=== PATIENT | female | born 2000 | race African-American/Black ===

== ENCOUNTER 2021-11-28 20:14 | Emergency (ER) | payer OTHER ==
--- OUTSIDE RECORDS SUMMARY | 2021-11-28 20:18 | XMS REPORT | Continuity of Care Document ---
:2000 Author Organization [facility] t Address [address] [place] [place] [address] Care Team Providers Name Role Phone Pcp, Patient Does Not Have A Primary Care Physician [phone] Jaida Castañeda Attending Clinician Unavailable VIV WOODRUFF Attending Clinician Unavailable RUIZ HARRIS Attending Clinician Unavailable Roxane Fall Attending Clinician 2, [facility] Us Room Attending Clinician Unavailable Russell Vázquez MD Attending Clinician RUSSELL VÁZQUEZ Attending Clinician Unavailable Doctor Unassigned, [place] Attending Clinician Unavailable VIVIEN GRIMALDO Attending Clinician Unavailable Marcello Babb Attending Clinician Vivien Grimaldo MD Attending Clinician Ruiz Bergman Attending Clinician [phone] ROXANE DAO Attending Clinician Unavailable 1, [facility] Us Room Attending Clinician Unavailable Eliana Rangel MD Attending Clinician ELIANA RANGEL Attending Clinician Unavailable NAHUM ESCOTO Attending Clinician Unavailable VIVIEN GRIMALDO Admitting Clinician Unavailable Jaida Castañeda Admitting Clinician Unavailable KNOW, DOES_NOT Admitting Clinician Unavailable Vivien Grimaldo MD Admitting Clinician Payers Payer Name Policy Type Policy Number Effective Date Expiration Date Zia santoyo FORMERLY [facility] [id number] 2021 [facility] MEDICAID 00:00:00 Problems Condition Condition Condition Status Onset Resolution Last Treating Co mments Source Name Details Category Date Date Treatment Clinician Date Supervisio Supervisio Disease Active U nivers n of high n of high 1-19 ity of risk risk 00:00: [place] 00 Medi queta in first in first Branch trimester trimester Overweight Overweight Disease Active U nivers (BMI (BMI 1-19 ity of 25.0-29.9) 25.0-29.9[place] Leg pain, Leg pain, Disease Active Uni vers right right 3-14 ity of 00:00: [place] 00 Medical Branch Allergies, Adverse Reactions, Alerts Allergy Allergy Status Severity Reaction(s) Onset Inactive Treating Comm ents Source Name Type Date Date Clinician shelldannie FA Active SV THROAT [facility] h SWELLING 8-27 [facility] derived [facility] [place] No Known DA Active U [facility] Allergie 8-26 [facility] s 00:[facility] [place] SEAFOOD/ Food Active Hives Univers FISH 9-10 ity of 00:00: [place] 00 Medical Branch Seafood/ Propensi Active Hives Univer s Fish ty to 9-10 ity of adverse 00:00: [place] reaction 00 Medical s Branch Social History Social Habit Start Date Stop Date Quantity Comments Source ASSERTION 2021-02-23 [facility] 00:00:00 Medical Branch Exposure to 2021-07-08 2021-07-18 Not sure [facility] SARS-CoV-2 (event) 00:00:00 09:18:00 Medica l Branch Alcohol intake 2021-06-25 2021-06-25 0 /d [facility] 00:00:00 00:00:00 Medical Branch Tobacco use and 2015-05-04 2015-05-04 Never used [facility] exposure 00:00:00 00:00:00 Medical Branch Sex Assigned At 2000 2000 [facility] 00:00:00 00:00:00 Medical Branch Smoking Status Start Date Stop Date Source Never smoker [facility] Medical Branch Medications Ordered Filled Start Stop Current Ordering Indication Dosage Frequency Signature Comments Components Source Medication Medication Date Date Medication? Clinician (SIG) Name Name Yes Take by Univer s vit/iron 4-23 mouth ity of fum/folic 13:22: daily. [place] [address] Medical ( 1 Branch + 1 ORAL) Yes Take by Univer s vit/iron 4-23 mouth ity of fum/folic 13:22: daily. [place] [address] Medical ( 1 Branch + 1 ORAL) Yes Take by Univer s vit/iron 4-23 mouth ity of fum/folic 13:22: daily. [place] [address] Medical ( 1 Branch + 1 ORAL) Yes Take by Univer s vit/iron 4-23 mouth ity of fum/folic 13:22: daily. [place] [address] Medical ( 1 Branch + 1 ORAL) Yes Take by Univer s vit/iron 4-23 mouth ity of fum/folic 13:22: daily. [place] [address] Medical ( 1 Branch + 1 ORAL) Yes Take by Univer s vit/iron 4-23 mouth ity of fum/folic 13:22: daily. [facility] 58 Medical ( 1 Branch + 1 ORAL) Yes Take by Univer s vit/iron 4-23 mouth ity of fum/folic 13:22: daily. [facility] 58 Medical ( 1 Branch + 1 ORAL) Yes Take by Univer s vit/iron 4-04 mouth ity of fum/folic 11:42: daily. [facility] 00 Medical ( 1 Branch + 1 ORAL) proMETHazin Yes [id number] 12.5mg Take 1 Univers e 12.5 mg 2-16 tablet by ity o f tablet 00:00: mouth [place] [address] every 6 Medical (six) Branch hours as needed for Nausea and Vomiting (N/V) () for up to 60 doses. proMETHazin 2021-0 Yes [id number] 12.5mg Take 1 Univers e 12.5 mg 2-16 tablet by ity o f tablet 00:00: mouth [place] 00 every 6 Medical (six) Branch hours as needed for Nausea and Vomiting (N/V) () for up to 60 doses. proMETHazin 0 Yes [id number] 12.5mg Take 1 Univers e 12.5 mg 2-16 tablet by ity o f tablet 00:00: mouth [place] 00 every 6 Medical (six) Branch hours as needed for Nausea and Vomiting (N/V) () for up to 60 doses. proMETHazin 2021-0 Yes [id number] 12.5mg Take 1 Univers e 12.5 mg 2-16 tablet by ity o f tablet 00:00: mouth [place] 00 every 6 Medical (six) Branch hours as needed for Nausea and Vomiting (N/V) () for up to 60 doses. proMETHazin 2021- No [id number] 12.5mg Take 1 Univers e 12.5 mg 2-16 04-04 tablet by ity of tablet 00:00: 00:00 mouth [place] 00 :00 every 6 Medical (six) Branch hours as needed for Nausea and Vomiting (N/V) () for up to 60 doses. PNV 67-iron 2021- No [id number] 1{tbl} Take 1 Univers ps-folate 2-16 -19 tablet by ity of no.1-dha 00:00: 04:59 mouth [place] (VITAFOL 00 :00 daily for Medica l ULTRA) 29 30 days. Branch mg iron- 1 mg-200 mg Cap PNV 67-iron 2021- No [id number] 1{tbl} Take 1 Univers ps-folate 2-16 03-19 tablet by ity of no.1-dha 00:00: 04:59 mouth [place] (VITAFOL 00 :00 daily for Medica l ULTRA) 29 30 days. Branch mg iron- 1 mg-200 mg Cap PNV 67-iron 2021- No [id number] 1{tbl} Take 1 Univers ps-folate 2-16 03-19 tablet by ity of no.1-dha 00:00: 04:59 mouth [place] (VITAFOL 00 :00 daily for Medica l ULTRA) 29 30 days. Branch mg iron- 1 mg-200 mg Cap PNV 67-iron 2021- No [id number] 1{tbl} Take 1 Univers ps-folate 05-09 tablet by ity of no.1-dha 00:00: 04:59 mouth [place] (VITAFOL 00 :00 daily for Medica l ULTRA) 29 30 days. Branch mg iron- 1 mg-200 mg Cap cephALEXin 2021- No TAKE 1 Univ ers 500 mg 04-05 CAPSULE BY ity of capsule 00:00: 00:00 MOUTH [place] 00 :00 TWICE Medical DAILY FOR Branch 3 DAYS ibuprofen 2014-03 No 600mg Take 1 Tab Univers (MOTRIN) 05-09 by mouth ity of 600 mg 00:00: 00:00 every 6 [place] tablet 00 :00 (six) Medical hours as Branch needed for Pain (scale 4-6) with oral narcotics. Immunizations Ordered Filled Immunization Date Status Comments [facility] e Immunization Name Name SARS-COV-2 COVID-19 2020-12-06 Completed Unive rsity of PFIZER VACCINE 00:00:00 [facility] SARS-COV-2 COVID-19 2020-12-06 Completed Unive rsity of PFIZER VACCINE 00:00:00 [facility] SARS-COV-2 COVID-19 2020-12-06 Completed Unive rsity of PFIZER VACCINE 00:00:00 [facility] SARS-COV-2 COVID-19 2020-12-06 Completed Unive rsity of PFIZER VACCINE 00:00:00 [facility] SARS-COV-2 COVID-19 2020-12-06 Completed Unive rsity of PFIZER VACCINE 00:00:00 [facility] SARS-COV-2 COVID-19 2020-12-06 Completed Unive rsity of PFIZER VACCINE 00:00:00 [facility] SARS-COV-2 COVID-19 2020-12-06 Completed Unive rsity of PFIZER VACCINE 00:00:00 [facility] SARS-COV-2 COVID-19 2020-12-06 Completed Unive rsity of PFIZER VACCINE 00:00:00 [place] Medi queta Branch SARS-COV-2 COVID-19 2020-12-06 Completed Unive rsity of PFIZER VACCINE 00:00:00 [facility] [place] [facility] Branch SARS-COV-2 COVID-19 2020-12-06 Completed Unive rsity of PFIZER VACCINE 00:00:00 [facility] [place] [facility] Branch SARS-COV-2 COVID-19 2020-12-06 Completed Unive rsity of PFIZER VACCINE 00:00:00 [facility] [place] [facility] Branch SARS-COV-2 COVID-19 2020-12-06 Completed Unive rsity of PFIZER VACCINE 00:00:00 [facility] [place] [facility] Branch SARS-COV-2 COVID-19 2020-11-15 Completed Unive rsity of PFIZER VACCINE 00:00:00 [facility] [place] [facility] Branch SARS-COV-2 COVID-19 2020-11-15 Completed Unive rsity of PFIZER VACCINE 00:00:00 [facility] [place] [facility] Branch SARS-COV-2 COVID-19 2020-11-15 Completed Unive rsity of PFIZER VACCINE 00:00:00 [facility] [place] [facility] Branch SARS-COV-2 COVID-19 2020-11-15 Completed Unive rsity of PFIZER VACCINE 00:00:00 [facility] [place] [facility] Branch SARS-COV-2 COVID-19 2020-11-15 Completed Unive rsity of PFIZER VACCINE 00:00:00 [facility] [place] [facility] Branch SARS-COV-2 COVID-19 2020-11-15 Completed Unive rsity of PFIZER VACCINE 00:00:00 [facility] [place] [facility] Branch SARS-COV-2 COVID-19 2020-11-15 Completed Unive rsity of PFIZER VACCINE 00:00:00 [facility] [place] [facility] Branch SARS-COV-2 COVID-19 2020-11-15 Completed Unive rsity of PFIZER VACCINE 00:00:00 [facility] [place] [facility] Branch SARS-COV-2 COVID-19 2020-11-15 Completed Unive rsity of PFIZER VACCINE 00:00:00 [facility] [place] [facility] Branch SARS-COV-2 COVID-19 2020-11-15 Completed Unive rsity of PFIZER VACCINE 00:00:00 [facility] SARS-COV-2 COVID-19 2020-11-15 Completed Unive rsity of PFIZER VACCINE 00:00:00 [facility] SARS-COV-2 COVID-19 2020-11-15 Completed Unive rsity of PFIZER VACCINE 00:00:00 [facility] [place] [facility] Branch HPV 2012-02-11 Completed University of 00:00:00 [facility] HPV 2012-02-11 Completed University of 00:00:00 [facility] Branch HPV 2012-02-11 Completed University of 00:00:00 [facility] HPV 2012-02-11 Completed University of 00:00:00 [facility] Branch HPV 2012-02-11 Completed University of 00:00:00 [facility] Branch HPV 2012-02-11 Completed University of 00:00:00 [facility] Branch HPV 2012-02-11 Completed University of 00:00:00 [facility] Branch HPV 2012-02-11 Completed University of 00:00:00 [facility] Branch HPV 2012-02-11 Completed University of 00:00:00 [facility] Branch HPV 2012-02-11 Completed University of 00:00:00 [facility] HPV 2012-02-11 Completed University of 00:00:00 [facility] HPV 2012-02-11 Completed University of 00:00:00 [facility] Vital Signs Vital Name Observation Time Observation Value Comments Source Systolic blood 2021-07-14 15:05:00 100 mm[Hg] Univer sity of pressure [facility] Diastolic blood 2021-07-14 15:05:00 70 mm[Hg] Unive rsity of pressure [facility] Heart rate 2021-07-14 15:05:00 113 /min [facility] Body temperature 2021-07-14 15:05:00 36.44 Afsaneh [facility] 2021-07-14 15:05:00 19 /min [facility] Body height 2021-07-14 15:05:00 160 cm [facility] Body weight 2021-07-14 15:05:00 71.124 kg [facility] BMI 2021-07-14 15:05:00 27.78 kg/m2 [facility] Oxygen saturation in 2021-07-14 15:05:00 100 /min [facility] Arterial blood by [facility] [place] [facility] Pulse oximetry Branch Systolic blood 2021-06-25 15:26:00 102 mm[Hg] Univer sity of pressure [facility] Diastolic blood 2021-06-25 15:26:00 67 mm[Hg] Unive rsity of pressure [place] [facility] Heart rate 2021-06-25 15:26:00 102 /min [facility] [place] [facility] Body temperature 2021-06-25 15:26:00 36.06 Afsaneh Univ ers[facility] [place] [facility] Respiratory rate 2021-06-25 15:26:00 20 /min [facility] [place] [facility] Body height 2021-06-25 15:26:00 160 cm [facility] [place] [facility] Body weight 2021-06-25 15:26:00 72.213 kg [facility] [place] [facility] BMI 2021-06-25 15:26:00 28.20 kg/m2 [facility] [place] [facility] Systolic blood 2021-05-30 16:52:00 98 mm[Hg] Univer sity of pressure [place] [facility] Diastolic blood 2021-05-30 16:52:00 71 mm[Hg] Unive rsity of pressure [place] [facility] Heart rate 2021-05-30 16:52:00 105 /min [facility] [place] [facility] Body temperature 2021-05-30 16:52:00 36.39 Afsaneh Univ ers[facility] [place] [facility] Respiratory rate 2021-05-30 16:52:00 18 /min Univ [facility] [place] [facility] Body height 2021-05-30 16:52:00 160 cm [facility] [place] [facility] Body weight 2021-05-30 16:52:00 71.532 kg [facility] [place] [facility] BMI 2021-05-30 16:52:00 27.94 kg/m2 [facility] [place] [facility] Systolic blood 2021-05-09 16:50:00 114 mm[Hg] Univer sity of pressure [place] [facility] Diastolic blood 2021-05-09 16:50:00 75 mm[Hg] Unive rsity of pressure [place] [facility] Heart rate 2021-05-09 16:50:00 103 /min [facility] [place] [facility] Body temperature 2021-05-09 16:50:00 36.28 Afsaneh Univ ers[facility] [place] [facility] Respiratory rate 2021-05-09 16:50:00 20 /min [facility] [place] [facility] Body height 2021-05-09 16:50:00 160 cm [facility] [place] [facility] Body weight 2021-05-09 16:50:00 71.215 kg [facility] BMI 2021-05-09 16:50:00 27.81 kg/m2 [facility] Procedures Procedure Date / Time Performing Clinician Source Performed [id number] 2021-11-17 00:00:00 [facility] [id number] 2021-11-17 00:00:00 [facility] [id number] 2021-11-17 00:00:00 [facility] [id number] 2021-11-16 00:00:00 [facility] AUTHORIZATION FOR 2021-07-18 05:01:00 Doctor Unassigned, No Univ [facility] RELEASE OF [facility] CONSENT/REFUSAL FOR 2021-07-14 14:54:20 Doctor Unassigned, No [facility] AUTHORIZATION FOR 2021-07-13 05:01:00 Doctor Unassigned, No [facility] POCT URINALYSIS 2021-06-25 15:29:00 Lion Ackerman [facility] POCT URINALYSIS 2021-05-30 16:56:00 Lion Ackerman [facility] POCT URINALYSIS 2021-05-09 16:51:00 Lion Ackerman [facility] Encounters Start End Encounter Admission Attending Care Care Encounter Source Date/Time Date/Time Type Type Clinicians Facility Department ID 2021-07-14 Outpatient X [facility] JASMEET [id number] [facility] 2021-11-16 2021-11-19 Inpatient DANE Shultz OBPP [id number] [facility] 07:01:00 15:01:00 Jaida 31 [facility] [place] 2021-11-01 2021-11-01 Outpatient DANE Peters [facility] [id number] [facility] 10:11:00 10:11:00 Jaida [facility] 2021-08-08 2021-08-09 Emergency E IHEME, VIV BL BL [id number] [facility] 22:11:00 04:46:00 2021-07-24 2021-07-24 Outpatient R IAN-GATO [facility] [id number] Univers 09:15:00 09:15:00 RUIZ PACK [id number] it y [facility] 2021-07-19 2021-07-19 Telephone ADRIANA Dao [id number] Univers 00:00:00 00:00:00 Roxane Valladares NURSING TECH [id number] i ty of REGIONAL 4.2.7.2.686 Slim as MATERNAL [id number] Med ical & CHILD [address] [place] [address] 2021-07-18 2021-07-18 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 840.114 [id number] Univers 10:00:00 11:00:00 Visit Russell Vázquez NURSING TECH 350.1.13.1 0 ity of [facility] 4.2.7.2.686 Slim as MATERNAL [id number] Med ical & CHILD [address] [place] [address] 2021-07-18 2021-07-18 Outpatient P [facility] [id number] Univers 10:00:00 10:00:00 [id number] [facility] 2021-07-18 2021-07-18 [facility] [id number] Univers 10:00:00 10:00:00 [facility] 2021-07-18 2021-07-18 Outpatient P [facility] [id number] Univers 09:00:00 09:00[facility] 2021-07-18 2021-07-18 Letter Arnold [facility] [id number] Univers 00:00:00 00:00:00 (Out) Russell Latham NURSING TECH 350.1.13.10 ity of [facility] 4.2.7.2.686 Slim as MATERNAL [id number] [facility] ical & CHILD [address] [place] [address] 2021-07-18 2021-07-18 Abstract Feliberto [facility] 1.2.840.114 [id number] Univers 00:00:00 00:00:00 Roxane Valladares NURSING TECH 350.1.13.10 i ty of [facility] 4.2.7.2.686 Slim as MATERNAL [id number] Med ical & CHILD [address] [place] [address] 2021-07-18 2021-07-18 Orders Doctor MANUEL 1.2.840.114 [id number] Univers 00:00:00 00:00:00 Only Unassigned, GENNY 350.1.13.10 ity of [place] [facility] 4.2.7.2.686 Slim as [id number] [address] 2021-07-14 2021-07-14 Outpatient X ADUM, [facility] JASMEET [id number] Univers 10:07:00 11:45:00 VIVIEN guidry [facility] 2021-07-14 2021-07-14 Emergency Lewis, Marcello [facility] 1.2. 840.114 [id number] Univers 10:07:00 11:45:00 AdVivien lazo 350.1.13.10 ity [facility] 4.2.7.2.686 [place] [facility] [id number] [facility] 083 [place] 2021-07-13 2021-07-13 Orders Doctor MANUEL 1.2.840.114 [id number] Univers 00:00:00 00:00:00 Only Unassigned, GENNY 350.1.13.10 ity of [place] [facility] 4.2.7.2.686 Slim as [id number] [address] 2021-06-28 2021-06-28 Outpatient R [facility] [id number] Univers 10:45:00 10:45:00 [id number] ity [facility] 2021-06-28 2021-06-28 Outpatient P [facility] [id number] Univers 10:45:00 10:45:00 ity [facility] 2021-06-25 2021-06-25 Outpatient R IAN-GATO [facility] [id number] Univers 10:30:00 10:45:59 RUIZ PACK y [facility] 2021-06-25 2021-06-25 Routine [facility] 1.2.840.114 [id number] Univers 10:30:00 10:45:59 Ruiz pack NURSING TECH 350.1.13.10 ity of Visit REGIONAL 4.2.7.2.686 Slim as MATERNAL [id number] [facility] & CHILD [address] [place] [address] 2021-06-25 2021-06-25 Outpatient R MARISSAR [facility] [id number] Univers 10:30:00 10:30:00 RUIZ PACK [id number] it y [facility] 2021-05-30 2021-05-30 [facility] [id number] Univers 10:45:00 11:27:39 ROXANE [facility] 2021-05-30 2021-05-30 [facility] 1.2.840.114 [id number] Univers 10:45:00 11:27:39 Roxane Valladares NURSING TECH 350.1.13.10 ity of Visit REGIONAL 4.2.7.2.686 Slim as MATERNAL [id number] [facility] & CHILD [address] [place] [address] 2021-05-28 2021-05-28 Abstract Feliberto [facility] 1.2.840.114 [id number] Univers 00:00:00 00:00:00 Roxane Valladares NURSING TECH 350.1.13.10 i ty of REGIONAL 4.2.7.2.686 Slim as MATERNAL [id number] [facility] & CHILD [address] [place] [address] 2021-05-24 2021-05-24 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 840.114 [id number] Univers 10:30:00 11:00:00 Visit Eliana Rangel NURSING TECH 350.1.13.10 ity of REGIONAL 4.2.7.2.686 Slim as MATERNAL [id number] [facility] & CHILD [address] [place] [address] 2021-05-24 2021-05-24 Outpatient R [facility] [id number] Univers 10:30:00 10:30:00 [id number] [facility] 2021-05-24 2021-05-24 Outpatient P GIA [facility] [id number] Univers 10:30:00 10:30:00 ELIANA [facility] 2021-05-09 2021-05-09 [facility] 1.2.840.114 [id number] Univers 11:00:00 11:25:13 Roxane K NURSING TECH 350.1.13.10 ity of Visit REGIONAL 4.2.7.2.686 Slim as MATERNAL [id number] Med ical & CHILD [address] [place] [address] 2021-04-05 2021-04-05 Emergency [id number] 16:26:00 18:32:00 NAHUM Results Test Description Test Time Test Comments Results Result Comments Source HGB HCT 2021-11-18 06:54:00 Test Item Value Reference Range Interpretation Comme nts HEMOGLOBIN (test code = HGB) 9.7 g/dL 10.1-13.8 L HEMATOCRIT (test code = HCT) 29.3 % 32.5-41.8 L COMPREHENSIVE METABOLIC [id number] 07:25:00 Test Item Value Reference Range Interpretation Comments SODIUM (test code = NA) 138 mEq/L 135-145 N POTASSIUM (test code = K) 3.6 mEq/L 3.5-5.0 N CHLORIDE (test code = CL) 105 mEq/L 100-115 N CARBON DIOXIDE (test code = CO2) 23 mEq/L 22-31 N ANION GAP (test code = GAP) 13.40 10-20 N GLUCOSE (test code = GLU) 103 mg/dL 65-110 N BLOOD UREA NITROGEN (test code = 4 mg/dL 7-18 L BUN) GLOMERULAR FILTRATION RATE (test 176 ml/min >60 N code = GFR) CREATININE (test code = CREAT) 0.5 mg/dL 0.5-1.0 N TOTAL PROTEIN (test code = PROT) 5.9 gm/dL 6.3-8.2 L ALBUMIN (test code = ALB) 2.4 gm/dL 3.4-4.8 L CALCIUM (test code = CA) 8.0 mg/dL 8.4-10.2 L BILIRUBIN TOTAL (test code = 1.0 mg/dL 0.2-1.0 N BILT) SGOT/AST (test code = AST) 24 units/L 15-37 N SGPT/ALT (test code = ALT) 17 units/L 12-78 N ALKALINE PHOSPHATASE TOTAL (test 178 units/L 46-116 H code = ALKP) LACTIC [id number] 07:14:00 Test Item Value Reference Range Interpretation Comments LACTIC ACID (test code = LACT) 1.4 MMOL/L 0.5-2.2 N PROTHROMBIN [id number] 06:55:00 Test Item Value Reference Range Interpretation Comments PROTHROMBIN TIME PATIENT (test code 11.2 secs 10.1-12.3 N = PTP) IS PATIENT ON ANTICOAGULANTS ? NINTERNATIONAL NORMAL [id number] 06:55:00 Test Item Value Reference Range Interpretation Comments INTERNATIONAL NORMAL 0.98 The INR is to be used RATIO (test code = INR) only for monitoring oral anticoagulantth erapy. INDICATION INR VALUE 1. Prophylaxis inc luding high risk surge ry 2.0 - 2.52. Deep veno us thrombosis. Pul monary embolism. Atria l fibrillation or bioprosthetic h eart valves 2.0 - 3. 03. Mechanical hear t valves or recurrent sy stemic embolism. 3.0 - 3.5 IS PATIENT ON ANTICOAGULANTS ? NTHROMBOPLASTIN TIME [id number] 06:55:00 Test Item Value Reference Range Interpretation Comments THROMBOPLASTIN TIME PARTIAL (test 26.8 secs 22-38 N code = PTT) IS PATIENT ON ANTICOAGULANTS ? NCBC W/AUTO [id number] 06:43:00 Test Item Value Reference Range Interpretation Comments WHITE BLOOD CELL (test code = WBC) 10.1 K/mm3 6.5-12.3 N RED BLOOD CELL (test code = RBC) 4.19 M/mm3 3.51-4.69 N HEMOGLOBIN (test code = HGB) 12.3 g/dL 10.1-13.8 N HEMATOCRIT (test code = HCT) 36.9 % 32.5-41.8 N MEAN CELL VOLUME (test code = MCV) 88.1 fL 84.6-96.6 N MEAN CELL HGB (test code = MCH) 29.4 pg 27.3-33.9 N MEAN CELL HGB CONCETRATION (test 33.3 gm/dL 32.0-34.2 N code = MCHC) RED CELL DISTRIBUTION WIDTH (test 14.9 % 12.2-16.3 N code = RDW) PLATELET COUNT (test code = PLT) 232 K/mm3 134-363 N MEAN PLATELET VOLUME (test code = 10.0 fL 9.2-12.7 N MPV) NEUTROPHIL % (test code = NT%) 81.9 % 57.9-77.3 H LYMPHOCYTE % (test code = LY%) 9.1 % 14.5-29.7 L MONOCYTE % (test code = MO%) 7.4 % 3.6-10.2 N EOSINOPHIL % (test code = EO%) 1.0 % 0.0-3.0 N BASOPHIL % (test code = BA%) 0.2 % 0.1-0.9 N NEUTROPHIL # (test code = NT#) 8.3 K/mm3 LYMPHOCYTE # (test code = LY#) 0.9 K/mm3 MONOCYTE # (test code = MO#) 0.8 K/mm3 EOSINOPHIL # (test code = EO#) 0.10 K/mm3 BASOPHIL # (test code = BA#) 0.0 K/mm3 RBC MORPHOLOGY REQUIRED (test code NORMAL NORMAL = RBCM) PLATELET MORPHOLOGY REQUIRED (test NORMAL NORMAL code = PLTMR) AG HEPATITIS B [id number] 09:34:00 Test Item Value Reference Range Interpretation Comments AG HEPATITIS B SURFACE (test code NONREACTIVE NONREACTIVE = HBSAG) AB HEPATITIS C [id number] 09:34:00 Test Item Value Reference Range Interpretation Comments AB HEPATITIS C (test code = NONREACTIVE NONREACTIVE HCVAB) SIGNAL TO CUTOFF (test code = 0.19 <0.80 N CUTOFF) AB [id number] 09:34:00 Test Item Value Reference Range Interpretation Comments AB TREPONEMA (test code = TREPAB) NONREACTIVE NONREACTIVE AB HIV 1 09:34:00 Test Item Value Reference Range Interpretation Comments AB HIV 1 2 (test NONREACTIVE NONREACTIVE Done by [facility] code = [id number]) 4th Gen HIV Ag/Ab Combo Screen COVID 19 Asymptomatic IH [id number] 08:27:00 Test Item Value Reference Range Interpretation Comments COVID 19 NEGATIVE NEGATIVE This test has b een Asymptomatic IH AG authorize d only for the (test code = detection ofpro teins from COVNONPUIAG) SARS-CoV-2, not for any other viruses orpathogens. Ne gative results should be treated as presumptive andconfirmed wi th a molecular assay , if necessary for patientmanageme nt. Negative result s do not rule out COVID- 19 andshould not b e used as the sole basis for treatment orpat ient management deci sions, including infec tion controldecision s. Negative result s should be considered i n thecontext of a patient's recent exposure s, history and thepresence of clinical signs and symptoms consis tent withCOVID-19. T his test has not been FD A cleared or approved; th e test hasbeen authori gustavo by FDA under an Emerge ncy Use Authorization(E UA) for use by laborato trisha certified under the CLIA thatmeet the re quirements to perform mode rate, high or waivedcomple xity tests. This juan t is authorized for use at thePoint of Car e (POC), i.e., in patien t care settingsoperati ng under a CLIA Certificat e of Waiver, Certifi cyndee ofCompliance, o r Certificate of Accreditation. This test is only authori gustavo for the duration of thedeclaration that circumstances e xist justifying theauthorizatio n of emergency use o f in vitro diagnostic test sfor detection and/o r diagnosis of CO VID-19 under Axcgydo39 4(b)(1) of the Act, 21 U.S .C. 360bbb-3(b)(1), unless theauthorizatio n is terminated or r evoked sooner. CBC W/AUTO [id number] 08:05:00 Test Item Value Reference Range Interpretation Comments WHITE BLOOD CELL (test code = WBC) 8.0 K/mm3 6.5-12.3 N RED BLOOD CELL (test code = RBC) 4.31 M/mm3 3.51-4.69 N HEMOGLOBIN (test code = HGB) 12.8 g/dL 10.1-13.8 N HEMATOCRIT (test code = HCT) 38.1 % 32.5-41.8 N MEAN CELL VOLUME (test code = MCV) 88.4 fL 84.6-96.6 N MEAN CELL HGB (test code = MCH) 29.7 pg 27.3-33.9 N MEAN CELL HGB CONCETRATION (test 33.6 gm/dL 32.0-34.2 N code = MCHC) RED CELL DISTRIBUTION WIDTH (test 14.9 % 12.2-16.3 N code = RDW) PLATELET COUNT (test code = PLT) 233 K/mm3 134-363 N MEAN PLATELET VOLUME (test code = 9.8 fL 9.2-12.7 N MPV) NEUTROPHIL % (test code = NT%) 70.6 % 57.9-77.3 N LYMPHOCYTE % (test code = LY%) 18.3 % 14.5-29.7 N MONOCYTE % (test code = MO%) 7.0 % 3.6-10.2 N EOSINOPHIL % (test code = EO%) 3.1 % 0.0-3.0 H BASOPHIL % (test code = BA%) 0.5 % 0.1-0.9 N NEUTROPHIL # (test code = NT#) 5.7 K/mm3 LYMPHOCYTE # (test code = LY#) 1.5 K/mm3 MONOCYTE # (test code = MO#) 0.6 K/mm3 EOSINOPHIL # (test code = EO#) 0.25 K/mm3 BASOPHIL # (test code = BA#) 0.0 K/mm3 RBC MORPHOLOGY REQUIRED (test code NORMAL NORMAL = RBCM) PLATELET MORPHOLOGY REQUIRED (test NORMAL NORMAL code = PLTMR) - FLW [id number] 00:00:00 [facility] : 2000 Sex: F Patient Name: MISBAH NUÑEZ Unit No: [id number] EXAMS: CPT CODE: [id number] [place] [address]06 PROCEDURE INFORMATION: Exam: US ; Follow up Exam date and time: 11/01/2021 10:49 AM Age: 20 years old Clinical indication: Screening exam; Other: Size less than dates; LABS AND CLINICAL REPORTS: Gestational age (Established): 37 w 6 d Estimated due date (Established): 11/16/2021 TECHNIQUE: Imaging protocol: Transabdominal ultrasound of the uterus, real time with image documentation. Follow-up (eg, re-evaluation of size by measuring standard growth parameters and amniotic fluidvolume, re-evaluation of organ system(s) suspected or confirmed to be abnormal on a previous scan). C OMPARISON: No relevant prior studies available. FINDINGS: Gestation: Intrauterine gestation. heart rate: 130 bpm presentation: Cephalic presentation. Placenta: Anterior grade 3 placenta without placenta previa. Amniotic fluid index: SISSY is 11.7 cm. Maximum vertical pocket is 3.8 cm. BIOMETR Y: Gestational age (AUA): 35 weeks, 6 days Estimated due date (AUA): 11/30/2021 Estimated weight: 2792 g (6 lb, 2 oz) Estimated weight percentile: 30th percentile Biparietal diameter (BPD): 9.2 cm. EGA (BPD) is 37 w 4 d. 64.9 percentile Head circumference (HC): 33 cm. EGA (HC) is 37 w 4 d. 22.8 percentile Abdominal circumference (AC): 31.2 cm. EGA (AC) is 35 w 1 d. 5.6 percentile* Humerus length (HL): 5.7 cm (32 weeks, 6 days) Femur length (FL): 7 cm. EGA (FL) is 36 w 0 d. 11.1 percentile Cephalic Index (CI): 80.81 HC/AC: 1.06 (0.93-1.08) FL/HC: 21.26 (20.10-22.13) FL/BPD: 75.88 (71-87) FL/AC: 22.48 (20-24) MATERNAL: Cervix: The cervix measures 2.7 cm. Right ovary/adnexa: The right ov ilana was not visualized. No adnexal mass. Left ovary/adnexa: The left ovary measures 3.4 x 2.6 x 3.3 cm. [facility] NAME: MISBAH NUÑEZ Radiology Department PHYS: Jaida Majano MD [address] : 2000 AGE: 20 SEX: F [place] [address] LOC: SandraRAD PHONE #: [phone] EXAM DATE: 11/01/2021 STATUS: REG CLI FAX #: [phone] RAD NO: Page 1 Signed Report (CONTINUED) Patient Name: MISBAH NUÑEZ Unit No: [id number] EXAMS: CPT CODE: [id number] [place] 27995 (Continued) Normal contour. IMPRESSION: 1. Estimated gestational age is 35 weeks, 6 days by today's exam with estimated weight of 2792 g (30th percentile for established dates). 2. Relatively small abdominal circumference with normal biometric ratios. at 1347 Reported and signed by: Shiv Bruce MD CC: Jaida Castañeda MD Technologist: Scarlett Rmoeo RDMS Probe: Trnscrbd D/ (1347) GCD.CPS Orig Print D/T: S: 11/01/2021 (1348) [facility] NAME: MISBAH NUÑEZ Radiology Department PHYS: Jaida Majano MD [address] : 2000 AGE: 20 SEX: F [place] [address] LOC: Ileana.RAD PHONE #: [phone] EXAM DATE: 11/01/2021 STATUS: REG CLI FAX #: [phone] RAD NO: Page 2 Signed Report Patient Name: MISBAH NUÑEZ Unit No: [id number]: CPT CODE: [id number] US FLW UP 18700 (Continued) [facility] NAME: MISBAH NUÑEZ Radiology Department PHYS: Jaida Majano MD [address] : 2000 AGE: 20 SEX: F [place] [address] LOC: CINDY PHONE #: [phone] EXAM DATE:11/01/2021 STATUS: REG CLI FAX #: [phone] RAD NO: Page 3 Signed ReportPOCT URINALYSIS W SPECIFIC GRAVITY 2021-06-25 15:29:00 Test Item Value Reference Range Interpretation Comments POCT U SP GRAV (test code = 3255) . 1.005-1.025 POCT PH U (test code = 3254) 7 mg/dl 5-8 POCT U LEUK EST (test code = neg Negative - Negative 3263) POCT U NIT (test code = 3262) neg Negative - Negative POCT U PROT (test code = 3259) neg Negative - Negative POCT U GLU (test code = 3256) neg Negative - Negative POCT U KETONE (test code = 3258) neg Negative - Negative POCT U UROBILI (test code = 3260) . 0.2-1 POCT U BILI (test code = 3261) . Negative - Negative POCT U BLD (test code = 3257) neg Negative - Negative POCT U COLOR (test code = 3266) POCT U APPEAR (test code = 3267) [facility] [id number] 16:58:00 Test Item Value Reference Range Interpretation Comments POCT U SP GRAV (test code = na 1.005-1.025 3255) POCT PH U (test code = 3254) 6 mg/dl 5-8 POCT U LEUK EST (test code = 2+ Negative - Negative 3263) POCT U NIT (test code = 3262) negative Negative - Negative POCT U PROT (test code = 3259) trace Negative - Negative POCT U GLU (test code = 3256) negative Negative - Negative POCT U KETONE (test code = 3258) negative Negative - Negative POCT U UROBILI (test code = na 0.2-1 3260) POCT U BILI (test code = 3261) na Negative - Negative POCT U BLD (test code = 3257) trace Negative - Negative POCT U COLOR (test code = 3266) POCT U APPEAR (test code = 3267) Lab Interpretation (test code = Abnormal 36264-0) [facility] SPECIFIC [id number] 17:03:00 Test Item Value Reference Range Interpretation Comments POCT U SP GRAV (test code = na 1.005-1.025 3255) POCT PH U (test code = 3254) 6 mg/dl 5-8 POCT U LEUK EST (test code = neg Negative - Negative 3263) POCT U NIT (test code = 3262) neg Negative - Negative POCT U PROT (test code = 3259) trace Negative - Negative POCT U GLU (test code = 3256) neg Negative - Negative POCT U KETONE (test code = 3258) 3+ Negative - Negative POCT U UROBILI (test code = na 0.2-1 3260) POCT U BILI (test code = 3261) na Negative - Negative POCT U BLD (test code = 3257) neg Negative - Negative POCT U COLOR (test code = 3266) POCT U APPEAR (test code = 3267) Lab Interpretation (test code = Abnormal 12158-0) [facility]
--- NOTE | 2021-11-29 00:44 | ER ---
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 States she "felt her throat close" and took 2 benadryl. Reports no difficulty breathing, dry/scratchy throat, dry cough. Coronavirus screen: Vaccine status: Patient reports receiving the 2nd dose of the covid vaccine. Client denies travel out of the [place] in the last 14 days. Ebola Screen: Patient negative for fever greater than or equal to 101.5 degrees Fahrenheit, and additional compatible Ebola Virus Disease symptoms Patient denies exposure to infectious person. Patient denies travel to an Ebola-affected area in the 21 days before illness onset. Initial Sepsis Screen: Does the patient meet any 2 criteria? No. Patient's initial sepsis screen is negative. Does the patient have a suspected source of infection? No. Patient's initial sepsis screen is negative. Risk Assessment: Do you want to hurt yourself or someone else? Patient reports no desire to harm self or others. Onset of symptoms was November 28, 2021 at 19:30. 20:56 Method Of Arrival: Ambulatory kb3 20:56 Acuity: DANIELA 5 kb3 Triage Assessment: 21:00 General: Appears in no apparent distress. comfortable, Behavior is calm. Pain: Denies kb3 pain. EENT: No deficits noted. Reports nasal congestion nasal discharge. 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 - Social history:: Smoking status: Patient denies any tobacco usage or history of. Screenin/08 01:00 Abuse screen: Denies threats or abuse. Nutritional screening: No deficits noted. vc1 Tuberculosis screening: No symptoms or risk factors identified. Fall Risk None identified. Assessment: 11/28 22:00 Respiratory: Airway is patent Respiratory effort is even, unlabored, Breath sounds are vc1 clear. EENT: Throat is clear. 23:00 Reassessment: Patient and/or family updated on plan of care and expected duration. Pain vc1 level reassessed. Patient is alert, oriented x 3, equal unlabored respirations, skin warm/dry/pink. 11/29 00:00 Reassessment: No changes from previously documented assessment. Patient and/or family vc1 updated on plan of care and expected duration. Pain level reassessed. Patient is alert, oriented x 3, equal unlabored respirations, skin warm/dry/pink. Vital Signs: 11/28 20:56 BP 117 / 85; Pulse 81; Resp 16; Temp 98; Pulse Ox 99% ; Weight 68.04 kg; Height 5 ft. 3 kb3 in. (160.02 cm); Pain 0/10; 11/29 00:19 BP 108 / 72; Pulse 87; Resp 18; Pulse Ox 98% on R/A; oe 11/28 20:56 Body Mass Index 26.57 (68.04 kg, 160.02 cm) kb3 ED Course: 11/28 20:15 Patient arrived in ED. mr 20:17 Frankie Mckeon NP is PHCP. pm1 20:17 Sunil Lorenzo MD is Attending Physician. pm1 21:00 Triage completed. kb3 21:00 Arm band placed on right wrist. Patient placed in an exam room. kb3 11/29 01:00 Sharon Davis RN is Primary Nurse. vc1 01:01 No provider procedures requiring assistance completed. Patient did not have IV access vc1 during this emergency room visit. Administered Medications: No medications were administered Medication: 01:01 VIS not applicable for this client. vc1 Outcome: 00:43 Discharge ordered by . pm1 01:01 Discharged to home ambulatory. vc1 01:01 Condition: good 01:01 Discharge instructions given to patient, Instructed on discharge instructions, follow up and referral plans. Demonstrated understanding of instructions, follow-up care. 01:02 Patient left the ED. vc1 Signatures: Jeanine Bell mr Frankie Mckeon, EFREN STATISTICAL FINANCIAL ANALYST pm1 Gian Sánchez Sharon Davis, RN RN vc1 Brooke Joseph RN RN kb3 Corrections: (The following items were deleted from the chart) 11/28 21:00 21:00 Allergies: No Known Allergies; kb3 kb3 : 21:00 EENT: No deficits noted. kb3 kb3
--- NOTE | 2021-11-29 00:44 | EDPHYS ---
Physician Documentation [facility] Name: Deb Hobbs Age: 20 yrs Sex: Female : 2000 Arrival Date: 11/28/2021 Time: 20:15 Bed 12 Private MD: ED Physician Sunil Lorenzo HPI: 11/28 21:31 This 20 yrs old Black Female presents to ER via Ambulatory with complaints of Sore pm1 Throat, Cough. 21:31 The patient presents with sore throat. The patient describes throat pain as raw, pm1 scratchy. Onset: The symptoms/episode began/occurred 2 hour(s) ago. Severity of symptoms: in the emergency department the symptoms have resolved, and did so just prior to arrival. Modifying factors: The symptoms are alleviated by over the counter medications, Benadryl. Associated signs and symptoms: Pertinent positives: cough. The patient has not recently seen a physician. Patient with exposure to dog dander which she is allergic to resulting in sore throat and cough. Patient took Benadryl prior to arrival for her symptoms and her sore throat and cough have resolved. However patient does have a infant at home that is less than 1 month old and she would like to be tested for COVID, flu, strep because she did have some degree of pharyngitis and cough prior to exposure to the dog dander. 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 - Social history:: Smoking status: Patient denies any tobacco usage or history of. ROS: 21:31 Constitutional: Negative for fever, chills, and weight loss. pm1 21:31 Cardiovascular: Negative for chest pain, palpitations, and edema. 21:31 Abdomen/GI: Negative for abdominal pain, nausea, vomiting, diarrhea, and constipation, Back: Negative for injury and pain, MS/Extremity: Negative for injury and deformity, Skin: Negative for injury, rash, and discoloration, Neuro: Negative for headache, weakness, numbness, tingling, and seizure. 21:31 ENT: Positive for sore throat, Negative for ear pain. 21:31 Respiratory: Positive for cough, Negative for shortness of breath, sputum production. 21:31 All other systems are negative. Exam: 21:31 Constitutional: This is a well developed, well nourished patient who is awake, alert, pm1 and in no acute distress. Head/Face: Normocephalic, atraumatic. 21:31 Back: No spinal tenderness. No costovertebral tenderness. Full range of motion. Skin: Warm, dry with normal turgor. Normal color with no rashes, no lesions, and no evidence of cellulitis. MS/ Extremity: Pulses equal, no cyanosis. Neurovascular intact. Full, normal range of motion. 21:31 ENT: Mouth: no acute changes, Posterior pharynx: no acute changes, Negative for stridor. 21:31 Cardiovascular: Exam negative for acute changes, Rate: normal, Rhythm: regular, Pulses: no pulse deficits are appreciated, Heart sounds: normal. 21:31 Respiratory: Exam negative for acute changes, respiratory distress, shortness of breath, Breath sounds: are clear throughout. 21:31 Neuro: Exam negative for acute changes, Orientation: is normal, Mentation: is normal, Motor: is normal, moves all fours. Vital Signs: 20:56 BP 117 / 85; Pulse 81; Resp 16; Temp 98; Pulse Ox 99% ; Weight 68.04 kg; Height 5 ft. 3 kb3 in. (160.02 cm); Pain 0/10; 11/29 00:19 BP 108 / 72; Pulse 87; Resp 18; Pulse Ox 98% on R/A; oe 11/28 20:56 Body Mass Index 26.57 (68.04 kg, 160.02 cm) kb3 MDM: 11/28 21:04 Patient medically screened. pm1 11/29 00:42 Data reviewed: vital signs. Data interpreted: Pulse oximetry: on room air is 98 %. pm1 Interpretation: normal. Counseling: I had a detailed discussion with the patient and/or guardian regarding: the historical points, exam findings, and any diagnostic results supporting the discharge/admit diagnosis, lab results, the need for outpatient follow up, to return to the emergency department if symptoms worsen or persist or if there are any questions or concerns that arise at home. 11/28 21:30 Order name: COVID-19 SARS RT PCR (Document "Date of Onset" if Symptomatic); Complete pm1 Time: 00:42 11/28 21:30 Order name: Flu; Complete Time: 00:06 pm1 11/28 21:30 Order name: Strep; Complete Time: 00:06 pm1 11/28 23:37 Order name: Throat Culture EDMS Administered Medications: No medications were administered Disposition: 03:19 Co-signature as Attending Physician, Sunil Lorenzo MD. rn Disposition Summary: 11/29/21 00:43 Discharge Ordered Location: Home pm1 Problem: new pm1 Symptoms: have improved pm1 Condition: Stable pm1 Diagnosis - Acute pharyngitis, unspecified pm1 Followup: pm1 - With: Emergency Department - When: As needed - Reason: Worsening of condition Followup: pm1 - With: Private Physician - When: 2 - 3 days - Reason: Recheck today's complaints, Continuance of care, Re-evaluation by your physician Discharge Instructions: - Discharge Summary Sheet pm1 - Pharyngitis pm1 Forms: - Medication Reconciliation Form pm1 - Thank You Letter pm1 - Antibiotic Education pm1 - Prescription Opioid Use pm1 Signatures: Dispatcher [employer] EDMS Sunil Lorenzo MD MD rn Marinas, Patrick, EFREN HELPER/DRIVER pm1 Brooke Joseph, RN RN kb3 Corrections: (The following items were deleted from the chart) 11/28 21:00 21:00 Allergies: No Known Allergies; kb3 kb3
[2021-11-29 05:34] VITALS: TEMP 98
[2021-11-29 05:37] VITALS: BP 108/72; O2SAT 98
== END 2021-11-29 01:02 | disposition home or self-care (01) ==
LOC: ER 20:14
DX: J02.9 Acute pharyngitis, unspecified (principal); Z20.822 Contact with and (suspected) exposure to COVID-19; Z91.013 Allergy to seafood
CPT/HCPCS: 87070; 87081; 87804 ×2; 99281; U0003

== ENCOUNTER 2023-07-22 19:25 | Emergency (ER) | payer OTHER, SELFPAY ==
--- OUTSIDE RECORDS SUMMARY | 2023-07-22 19:30 | XMS REPORT | Continuity of Care Document ---
Author Name Unknown Address [address] [facility] [address] [place] [address] [facility] thconnect Address [address] [facility] [address] [facility] [address] [place] [address] Care Team Providers Care [place] Roofer Name Role Phone EVA MSAON Primary Care Physician UnavailJAIMIE Montejo Attending Clinician Unavailable FLORENTINO BRYANT Attending Clinician Unav ailable Mayelin, [facility] Attending Clinician Unava ilRylie Rosenthal Attending Clinician [phone] RYLIE DAVIDSON Attending Clinician Unavailable TRIXIE BROWN Attending Clinician Unavailable Trixie Brown MD Attending Clinician [phone] YOHANA YEN Attending Clinician Unavailable Evette SCHWARTZ, Yohana Vicente Attending Clinician + [phone] MASON MCNEILL Attending Clinician Unavailable Eva DIRECTORY OPERATOR, Mason Attending Clinician [phone] RAF PERES Attending Clinician Unavailable Raf Blanc Attending Clinician [phone] Doctor Unassigned, [place] Attending Clinician U navailable CHRISTOPHER VILCHIS Attending Clinician Unavailable Christopher Vilchis MD Attending Clinician [phone] Jaida Castañeda Attending Clinician Unavaillove [facility] + [phone], [facility] Us Room Attending Clinician Unavailab Russell Alatorre MD Attending Clinician + [phone] RUSSELL BARRETT Attending Clinician Unavaila VIVIEN Robins Attending Clinician Unavailable Marcello Babb Attending Clinician + [phone] Vivien Grimaldo MD Attending Clinician [phone] RUIZ HARRIS Attending Clinician Unava ilable Ruiz Bergman Attending Clinician + BLAS DAO Attending Clinician Unavailable 1, [facility] Us Room Attending Clinician UnavailEliana Elliott MD Attending Clinician [phone] ELIANA RANGEL Attending Clinician Unavailable Meka Vazquez JUAN Attending Clinician + [facility] Temp Attending Clinician Christin vailable VAZQUEZ ACKERMAN Attending Clinician Unavail able Darby Miranda Attending Clinician [phone] DARBY SORIANO Attending Clinician Unavaila VIVIEN Robins Admitting Clinician Unavailable Jaida Castañeda Admitting Clinician Unavaila kacie KNOW, DOES_NOT Admitting Clinician Unavailable Vivien Grimaldo MD Admitting Clinician [phone] Payers Payer Name Policy Type Policy Number Effective Date Expirati on Date Source [facility] [id number] 2021 00:00:00 [place] [id number] 2021 00:00:00 Problems Condition Name Condition Details Condition Category Status Onset Date Resolution Date Last Treatment Date Treating Clinician Comments Source Encounter for Depo-Prove ra contracept ion Encounter for Depo-Prove ra contracept ion Disease Active 07-18 00:00: 00 [facility] BMI 25.0-25.9, adult BMI 25.0-25.9, adult Disease Active 07-18 00:00: 00 [facility] Supervisio n of high risk in first trimester Supervisio n of high risk in first trimester Disease Active 04-11 00:00: 00 [facility] Overweight (BMI 25.0-29.9) Overweight (BMI 25.0-29.9) Disease Active 04-11 00:00: 00 [facility] Leg pain, right Leg pain, right Disease Active 3 00:00: 00 [facility] Allergies, Adverse Reactions, Alerts Allergy Name Allergy Type Status Severity Reaction(s) Onset Date Inactive Date Treating Clinician Comments Source shellfis h derived FA Active SV THROAT SWELLING 11-17 00:00: 00 [facility] No Known Allergie s DA Active U 11-16 00:00: 00 [facility] SEAFOOD/ FISH Food Active Hives 12-01 00:00: 00 [facility] Seafood/ Fish Propensi ty to adverse reaction s Active Hives 12-01 00:00: 00 [facility] Social History Social Habit Start Date Stop Date Quantity Comments Source ASSERTION 2021-02-23 00:00:00 [facility] Alcohol intake 2023-04-11 00:00:00 2023-04-11 00:00:00 Current drinker of alcohol (finding) [facility] Exposure to SARS-CoV-2 (event) 2022-07-22 00:00:00 2022-08-01 14:54:00 Not sure [facility] Alcohol Comment 2022-07-18 00:00:00 2022-07-18 00:00:00 Every few months [facility] Tobacco use and exposure 2022-07-18 00:00:00 2022-07-18 00:00:00 Smokeless tobacco non-user [facility] History of Social function 2022-07-18 00:00:00 2022-07-18 00:00:00 [facility] Sex Assigned At 2000 00:00:00 2000 00:00:00 [facility] Smoking Status Start Date Stop Date Source Never smoked tobacco [facility] Medications Ordered Medication Name Filled Medication Name Start Date Stop Date Current Medication? Ordering Clinician Indication Dosage Frequency Signature (SIG) Comments Components Source cefpodoxime 100 mg tablet 04-02 00:00: 00 04-10 05:59 :00 No [id number] 100mg Take 1 tablet by mouth in the morning and 1 tablet in the evening. Do all this for 7 days. [facility] amoxicillin (TRIMOX) capsule 500 mg 2022-03 02:00: 00 02-14 01:51 :00 No 500mg 500 mg, Oral, ONCE, 1 dose, On Lisa 02/13/23 at 2000, JOSE
Re ason for Anti-Infec tive: Documented Infection< br>Documen fish Infection Site: HEENT
D uration of Therapy: Other (see Comments) [facility] methylPREDN ISolone 4 mg tablets 2022-03 00:00: 00 Yes [id number] Take by mouth SEE-INSTRU CTIONS. follow package directions [facility] amoxicillin -pot clavulanate 500 mg 500-125 mg tablet 2022-03 00:00: 00 Yes [id number] 500mg Take 1 tablet by mouth every 8 (eight) hours. [facility] medroxyPROG ESTERone (DEPO-PROVE RA) injection 150 mg 10-11 19:45: 00 Yes [id number] 150mg [facility] doxycycline monohydrate 100 mg capsule 07-19 00:00: 00 07-27 04:59 :00 No [id number] 100mg Take 1 capsule by mouth in the morning and 1 capsule in the evening. Do all this for 7 days. [facility] medroxyPROG ESTERone (DEPO-PROVE RA) syringe 150 mg 07-18 19:45: 00 07-18 19:33 :00 No [id number] [facility] vit/iron fum/folic ac ( 1 + 1 ORAL) 07-18 13:20: 54 07-18 00:00 :00 No Take by mouth daily. [facility] vit/iron fum/folic ac ( 1 + 1 ORAL) 07-14 13:22: 58 Yes Take by mouth daily. [facility] vit/iron fum/folic ac ( 1 + 1 ORAL) 06-25 11:42: 00 Yes Take by mouth daily. [facility] proMETHazin e 12.5 mg tablet 05-09 00:00: 00 06-25 00:00 :00 No [id number] 12.5mg Take 1 tablet by mouth every 6 (six) hours as needed for Nausea and Vomiting (N/V) () for up to 60 doses. [facility] PNV 67-iron ps-folate no.1-dha (VITAFOL ULTRA) 29 mg iron- 1 mg-200 mg Cap 16 00:00: 00 06-09 04:59 :00 No [id number] 1{tbl} Take 1 tablet by mouth daily for 30 days. [facility] cephALEXin 500 mg capsule -13 00:00: 00 05-09 00:00 :00 No TAKE 1 CAPSULE BY MOUTH TWICE DAILY FOR 3 DAYS [facility] ibuprofen (MOTRIN) 600 mg tablet 2014-03 0- 00:00: 00 05-09 00:00 :00 No 600mg Take 1 Tab by mouth every 6 (six) hours as needed for Pain (scale 4-6) with oral narcotics. [facility] Immunizations Ordered Immunization Name Filled Immunization Name Date Status Comments Source SARS-COV-2 COVID-19 PFIZER VACCINE 2020-12-06 00:00:00 Completed [facility] SARS-COV-2 COVID-19 PFIZER VACCINE 2020-12-06 00:00:00 Completed [facility] SARS-COV-2 COVID-19 PFIZER VACCINE 2020-12-06 00:00:00 Completed [facility] SARS-COV-2 COVID-19 PFIZER VACCINE 2020-12-06 00:00:00 Completed [facility] SARS-COV-2 COVID-19 PFIZER VACCINE 2020-12-06 00:00:00 Completed [facility] SARS-COV-2 COVID-19 PFIZER VACCINE 2020-12-06 00:00:00 Completed [facility] SARS-COV-2 COVID-19 PFIZER VACCINE 2020-12-06 00:00:00 Completed [facility] SARS-COV-2 COVID-19 PFIZER VACCINE 2020-12-06 00:00:00 Completed [facility] SARS-COV-2 COVID-19 PFIZER VACCINE 2020-12-06 00:00:00 Completed [facility] SARS-COV-2 COVID-19 PFIZER VACCINE 2020-12-06 00:00:00 Completed [facility] SARS-COV-2 COVID-19 PFIZER VACCINE 2020-12-06 00:00:00 Completed [facility] SARS-COV-2 COVID-19 PFIZER VACCINE 2020-12-06 00:00:00 Completed [facility] SARS-COV-2 COVID-19 PFIZER VACCINE 2020-12-06 00:00:00 Completed [facility] SARS-COV-2 COVID-19 PFIZER VACCINE 2020-12-06 00:00:00 Completed [facility] SARS-COV-2 COVID-19 PFIZER VACCINE 2020-12-06 00:00:00 Completed [facility] SARS-COV-2 COVID-19 PFIZER VACCINE 2020-12-06 00:00:00 Completed [facility] SARS-COV-2 COVID-19 PFIZER VACCINE 2020-12-06 00:00:00 Completed [facility] SARS-COV-2 COVID-19 PFIZER VACCINE 2020-12-06 00:00:00 Completed [facility] SARS-COV-2 COVID-19 PFIZER VACCINE 2020-12-06 00:00:00 Completed [facility] SARS-COV-2 COVID-19 PFIZER VACCINE 2020-12-06 00:00:00 Completed [facility] SARS-COV-2 COVID-19 PFIZER VACCINE 2020-12-06 00:00:00 Completed [facility] SARS-COV-2 COVID-19 PFIZER VACCINE 2020-12-06 00:00:00 Completed [facility] SARS-COV-2 COVID-19 PFIZER VACCINE 2020-12-06 00:00:00 Completed [facility] SARS-COV-2 COVID-19 PFIZER VACCINE 2020-12-06 00:00:00 Completed [facility] SARS-COV-2 COVID-19 PFIZER VACCINE 2020-11-15 00:00:00 Completed [facility] SARS-COV-2 COVID-19 PFIZER VACCINE 2020-11-15 00:00:00 Completed [facility] SARS-COV-2 COVID-19 PFIZER VACCINE 2020-11-15 00:00:00 Completed [facility] SARS-COV-2 COVID-19 PFIZER VACCINE 2020-11-15 00:00:00 Completed [facility] SARS-COV-2 COVID-19 PFIZER VACCINE 2020-11-15 00:00:00 Completed [facility] SARS-COV-2 COVID-19 PFIZER VACCINE 2020-11-15 00:00:00 Completed [facility] SARS-COV-2 COVID-19 PFIZER VACCINE 2020-11-15 00:00:00 Completed [facility] SARS-COV-2 COVID-19 PFIZER VACCINE 2020-11-15 00:00:00 Completed [facility] SARS-COV-2 COVID-19 PFIZER VACCINE 2020-11-15 00:00:00 Completed [facility] SARS-COV-2 COVID-19 PFIZER VACCINE 2020-11-15 00:00:00 Completed [facility] SARS-COV-2 COVID-19 PFIZER VACCINE 2020-11-15 00:00:00 Completed [facility] SARS-COV-2 COVID-19 PFIZER VACCINE 2020-11-15 00:00:00 Completed [facility] SARS-COV-2 COVID-19 PFIZER VACCINE 2020-11-15 00:00:00 Completed [facility] SARS-COV-2 COVID-19 PFIZER VACCINE 2020-11-15 00:00:00 Completed [facility] SARS-COV-2 COVID-19 PFIZER VACCINE 2020-11-15 00:00:00 Completed [facility] SARS-COV-2 COVID-19 PFIZER VACCINE 2020-11-15 00:00:00 Completed [facility] SARS-COV-2 COVID-19 PFIZER VACCINE 2020-11-15 00:00:00 Completed [facility] SARS-COV-2 COVID-19 PFIZER VACCINE 2020-11-15 00:00:00 Completed [facility] SARS-COV-2 COVID-19 PFIZER VACCINE 2020-11-15 00:00:00 Completed [facility] SARS-COV-2 COVID-19 PFIZER VACCINE 2020-11-15 00:00:00 Completed [facility] SARS-COV-2 COVID-19 PFIZER VACCINE 2020-11-15 00:00:00 Completed [facility] SARS-COV-2 COVID-19 PFIZER VACCINE 2020-11-15 00:00:00 Completed [facility] SARS-COV-2 COVID-19 PFIZER VACCINE 2020-11-15 00:00:00 Completed [facility] SARS-COV-2 COVID-19 PFIZER VACCINE 2020-11-15 00:00:00 Completed [facility] HPV 2012-02-11 00:00:00 Completed [facility] HPV 2012-02-11 00:00:00 Completed [facility] HPV 2012-02-11 00:00:00 Completed [facility] HPV 2012-02-11 00:00:00 Completed [facility] HPV 2012-02-11 00:00:00 Completed [facility] HPV 2012-02-11 00:00:00 Completed [facility] HPV 2012-02-11 00:00:00 Completed [facility] HPV 2012-02-11 00:00:00 Completed [facility] HPV 2012-02-11 00:00:00 Completed [facility] HPV 2012-02-11 00:00:00 Completed [facility] HPV 2012-02-11 00:00:00 Completed [facility] HPV 2012-02-11 00:00:00 Completed [facility] HPV 2012-02-11 00:00:00 Completed [facility] SARS-COV-2 COVID-19 PFIZER VACCINE Unknown Completed [facility] SARS-COV-2 COVID-19 PFIZER VACCINE Unknown Completed [facility] SARS-COV-2 COVID-19 PFIZER VACCINE Unknown Completed [facility] SARS-COV-2 COVID-19 PFIZER VACCINE Unknown Completed [facility] SARS-COV-2 COVID-19 PFIZER VACCINE Unknown Completed [facility] SARS-COV-2 COVID-19 PFIZER VACCINE Unknown Completed [facility] SARS-COV-2 COVID-19 PFIZER VACCINE Unknown Completed [facility] SARS-COV-2 COVID-19 PFIZER VACCINE Unknown Completed [facility] Vital Signs Vital Name Observation Time Observation Value Comments S ource Systolic blood pressure 2023-04-11 19:21:00 106 mm[Hg] [facility] Diastolic blood pressure 2023-04-11 19:21:00 75 mm[Hg] [facility] Heart rate 2023-04-11 19:21:00 103 /min [facility] Body temperature 2023-04-11 19:21:00 36.17 Afsaneh [facility] Respiratory rate 2023-04-11 19:21:00 18 /min [facility] Body height 2023-04-11 19:21:00 160 cm [facility] Body weight 2023-04-11 19:21:00 66.996 kg [facility] BMI 2023-04-11 19:21:00 26.16 kg/m2 [facility] Systolic blood pressure 2023-04-02 15:10:00 100 mm[Hg] [facility] Diastolic blood pressure 2023-04-02 15:10:00 64 mm[Hg] [facility] Heart rate 2023-04-02 15:10:00 88 /min Unive [facility] Body temperature 2023-04-02 15:10:00 36.33 Afsaneh [facility] Respiratory rate 2023-04-02 15:10:00 16 /min [facility] Oxygen saturation in Arterial blood by Pulse oximetry 2023-04-02 15:10:00 100 /min [facility] Body height 2023-04-02 13:22:00 160 cm [facility] Body weight 2023-04-02 13:22:00 68.04 kg [facility] BMI 2023-04-02 13:22:00 26.57 kg/m2 [facility] Body temperature 2023-02-14 01:52:00 37 Afsaneh [facility] Systolic blood pressure 2023-02-14 01:42:00 110 mm[Hg] [facility] Diastolic blood pressure 2023-02-14 01:42:00 75 mm[Hg] [facility] Heart rate 2023-02-14 01:42:00 97 /min Unive [facility] Respiratory rate 2023-02-14 01:42:00 16 /min [facility] Body height 2023-02-14 01:42:00 160 cm [facility] Body weight 2023-02-14 01:42:00 68.04 kg [facility] BMI 2023-02-14 01:42:00 26.57 kg/m2 [facility] Oxygen saturation in Arterial blood by Pulse oximetry 2023-02-14 01:42:00 99 /min [facility] Systolic blood pressure 2023-01-03 18:42:00 97 mm[Hg] [facility] Diastolic blood pressure 2023-01-03 18:42:00 66 mm[Hg] [facility] Heart rate 2023-01-03 18:42:00 92 [facility] Body temperature 2023-01-03 18:42:00 36.28 Afsaneh [facility] Respiratory rate 2023-01-03 18:42:00 20 /min [facility] Body height 2023-01-03 18:42:00 160 cm [facility] Body weight 2023-01-03 18:42:00 68.04 kg [facility] BMI 2023-01-03 18:42:00 26.57 kg/m2 [facility] Systolic blood pressure 2022-10-11 19:23:00 110 mm[Hg] [facility] Diastolic blood pressure 2022-10-11 19:23:00 70 mm[Hg] [facility] Heart rate 2022-10-11 19:23:00 80 /min Unive [facility] Body temperature 2022-10-11 19:23:00 36.28 Afsaneh [facility] Respiratory rate 2022-10-11 19:23:00 18 /min [facility] Body height 2022-10-11 19:23:00 160 cm [facility] Body weight 2022-10-11 19:23:00 69.491 kg [facility] BMI 2022-10-11 19:23:00 27.14 kg/m2 [facility] Systolic blood pressure 2022-08-01 20:04:00 123 mm[Hg] [facility] Diastolic blood pressure 2022-08-01 20:04:00 67 mm[Hg] [facility] Heart rate 2022-08-01 20:04:00 80 /min Unive [facility] Body temperature 2022-08-01 20:04:00 36.22 Afsaneh [facility] Respiratory rate 2022-08-01 20:04:00 22 /min [facility] Body height 2022-08-01 20:04:00 160 cm [facility] Body weight 2022-08-01 20:04:00 70.761 kg [facility] BMI 2022-08-01 20:04:00 27.63 kg/m2 [facility] Systolic blood pressure 2022-07-30 06:14:00 119 mm[Hg] [facility] Diastolic blood pressure 2022-07-30 06:14:00 90 mm[Hg] [facility] Heart rate 2022-07-30 06:14:00 115 /min Unive [facility] Body temperature 2022-07-30 06:14:00 37.11 Afsaneh [facility] Respiratory rate 2022-07-30 06:14:00 16 /min [facility] Body height 2022-07-30 06:14:00 160 cm [facility] Body weight 2022-07-30 06:14:00 72.576 kg [facility] BMI 2022-07-30 06:14:00 28.34 kg/m2 [facility] Oxygen saturation in Arterial blood by Pulse oximetry 2022-07-30 06:14:00 97 /min [facility] Systolic blood pressure 2022-07-18 18:07:00 106 mm[Hg] [facility] Diastolic blood pressure 2022-07-18 18:07:00 69 mm[Hg] [facility] Heart rate 2022-07-18 18:07:00 85 /min Unive [facility] Body temperature 2022-07-18 18:07:00 36.06 Afsaneh [facility] Respiratory rate 2022-07-18 18:07:00 16 /min [facility] Body height 2022-07-18 18:07:00 160 cm [facility] Body weight 2022-07-18 18:07:00 72.802 kg [facility] BMI 2022-07-18 18:07:00 28.43 kg/m2 [facility] Heart rate 2022-07-01 09:37:00 106 /min [facility] Oxygen saturation in Arterial blood by Pulse oximetry 2022-07-01 09:37:00 98 /min [facility] Systolic blood pressure 2022-07-01 08:07:00 110 mm[Hg] [facility] Diastolic blood pressure 2022-07-01 08:07:00 72 mm[Hg] [facility] Body temperature 2022-07-01 08:07:00 37.11 Afsaneh [facility] Respiratory rate 2022-07-01 08:07:00 20 /min [facility] Body height 2022-07-01 08:07:00 160 cm [facility] Body weight 2022-07-01 08:07:00 73.347 kg [facility] BMI 2022-07-01 08:07:00 28.64 kg/m2 [facility] Systolic blood pressure 2021-07-14 15:05:00 100 mm[Hg] [facility] Diastolic blood pressure 2021-07-14 15:05:00 70 mm[Hg] [facility] Heart rate 2021-07-14 15:05:00 113 /min Unive [facility] Body temperature 2021-07-14 15:05:00 36.44 Afsaneh [facility] Respiratory rate 2021-07-14 15:05:00 19 /min [facility] Body height 2021-07-14 15:05:00 160 cm [facility] Body weight 2021-07-14 15:05:00 71.124 kg [facility] BMI 2021-07-14 15:05:00 27.78 kg/m2 [facility] Oxygen saturation in Arterial blood by Pulse oximetry 2021-07-14 15:05:00 100 /min [facility] Systolic blood pressure 2021-06-25 15:26:00 102 mm[Hg] [facility] Diastolic blood pressure 2021-06-25 15:26:00 67 mm[Hg] [facility] Heart rate 2021-06-25 15:26:00 102 /[facility] Body temperature 2021-06-25 15:26:00 36.06 Afsaneh [facility] Respiratory rate 2021-06-25 15:26:00 20 /min [facility] Body height 2021-06-25 15:26:00 160 cm [facility] Body weight 2021-06-25 15:26:00 72.213 kg [facility] BMI 2021-06-25 15:26:00 28.20 kg/m2 [facility] Systolic blood pressure 2021-05-30 16:52:00 98 mm[Hg] [facility] Diastolic blood pressure 2021-05-30 16:52:00 71 mm[Hg] [facility] Heart rate 2021-05-30 16:52:00 105 /min [facility] Body temperature 2021-05-30 16:52:00 36.39 Afsaneh [facility] Respiratory rate 2021-05-30 16:52:00 18 /min [facility] Body height 2021-05-30 16:52:00 160 cm [facility] Body weight 2021-05-30 16:52:00 71.532 kg [facility] BMI 2021-05-30 16:52:00 27.94 kg/m2 [facility] Systolic blood pressure 2021-05-09 16:50:00 114 mm[Hg] [facility] Diastolic blood pressure 2021-05-09 16:50:00 75 mm[Hg] [facility] Heart rate 2021-05-09 16:50:00 103 /min [facility] Body temperature 2021-05-09 16:50:00 36.28 Afsaneh [facility] Respiratory rate 2021-05-09 16:50:00 20 /min [facility] Body height 2021-05-09 16:50:00 160 cm [facility] Body weight 2021-05-09 16:50:00 71.215 kg [facility] BMI 2021-05-09 16:50:00 27.81 kg/m2 [facility] Procedures Procedure Date / Time Performed Performing Clinician Source POCT TEST 2023-04-02 14:02:00 Trixie Brown [facility] LIPASE 2023-04-02 13:58:00 Trixie Brown [facility] COMP. METABOLIC PANEL ([id number]) 2023-04-02 13:58:00 Trixie Brown [facility] CBC WITH DIFF 2023-04-02 13:58:00 rTixie Brown [facility] URINALYSIS 2023-04-02 13:58:00 Trixie Brown [facility] CONSENT/REFUSAL FOR DIAGNOSIS AND TREATMENT 2023-04-02 13:16:56 Doctor Unassigned, [place] [facility] CONSENT/REFUSAL FOR DIAGNOSIS AND TREATMENT 2023-02-14 01:38:15 Doctor Unassigned, [place] [facility] CONSENT/REFUSAL FOR DIAGNOSIS AND TREATMENT 2022-07-30 06:12:23 Doctor Unassigned, [place] [facility] POCT TEST 2022-07-18 18:50:00 Fojt, [facility]ie [facility] TRICHOMONAS AMPLIFIED ASSAY 2022-07-18 18:50:00 Fojt, [facility] PAP SMEAR-LIQUID BASED-CP 2022-07-18 18:50:00 Fojt, [facility] CONSENT/REFUSAL FOR DIAGNOSIS AND TREATMENT 2022-07-18 17:49:50 Doctor Unassigned, [place] [facility] ASSIGNMENT OF BENEFITS 2022-07-18 17:49:35 Docto r Unassigned, [place] [facility] POCT TEST 2022-07-01 08:17:00 Christopher Vilchis [facility] RAPID STREP SCREEN FOR GROUP A 2022-07-01 08:13:00 Christopher Vilchis [facility] RAPID INFLUENZA A/B 2022-07-01 08:13:00 Christopher Vilchis [facility] COVID-19 (ID NOW RAPID TESTING) 2022-07-01 08:13:00 Christopher Vilchis [facility] NOTICE OF PRIVACY PRACTICES 2022-07-01 08:04:44 Doctor Unassigned, [place] [facility] CONSENT/REFUSAL FOR DIAGNOSIS AND TREATMENT 2022-07-01 08:02:20 Doctor Unassigned, [place] [facility] [id number] 2021-11-17 [facility] [id number] 2021-11-17 00:00[facility] [id number] 2021-11-17 00:00[facility] [id number] 2021-11-16 00:00:00 ROBTH [facility] AUTHORIZATION FOR RELEASE OF PHI 2021-07-18 05:01:00 Doctor Unassigned, [place] [facility] CONSENT/REFUSAL FOR DIAGNOSIS AND TREATMENT 2021-07-14 14:54:20 Doctor Unassigned, [place] [facility] AUTHORIZATION FOR RELEASE OF PHI 2021-07-13 05:01:00 Doctor Unassigned, [place] [facility] POCT URINALYSIS 2021-06-25 15:29:00 Vazquez Ackerman [facility] POCT URINALYSIS 2021-05-30 16:56:00 Vazquez Ackerman [facility] POCT URINALYSIS 2021-05-09 16:51:00 Vazquez Ackerman [facility] Encounters Start Date/Time End Date/Time Encounter Type Admission Type Attending [facility] Care Department Encounter ID Source 2021-07-14 13:23:04 Outpatient X [facility] JASMEET [id number] [facility] 2023-07-22 14:31:00 2023-07-22 14:31:00 Emergency X FLORENTINO BRYANT [facility] ERT [id number] [facility] 2023-07-11 13:15:00 2023-07-11 13:15:00 Outpatient R JAIMIE ALMEIDA [facility] [id number] [facility] 2023-04-11 14:30:00 2023-04-11 14:30:00 Nurse Visit Visit, Sug-Rmchp Nurse Rylie Davidson [facility] RESOURCE COORDINATOR [employer] [facility]ERNAL [facility] 1.2.840.114 350.1.13.10 4.2.7.2.686 [id number] [facility] 2023-04-11 14:30:00 2023-04-11 13:47:49 Outpatient R RYLIE DAVIDSON FELECIA [facility] [id number] [facility] 2023-04-10 13:45:00 2023-04-10 13:45:00 Outpatient R [facility] [id number] [facility] 2023-04-02 07:24:00 2023-04-02 09:28:00 Emergency X TRIXIE BROWN [facility] ERT [id number] [facility] 2023-04-02 07:24:00 2023-04-02 09:28:00 Emergency Trixie Brown [facility] 1.840.114 350.1.13.10 4.2.7.2.686 [id number] [facility] 2023-02-13 19:47:00 2023-02-13 19:53:00 Emergency X YOHANA YEN [facility] ERT [id number] [facility] 2023-02-13 19:47:00 2023-02-13 19:53:00 Emergency Yohana Yen G [facility] 1.840.114 350.1.13.10 4.2.7.2.686 [id number] [facility] 2023-01-03 14:00:00 2023-01-03 14:13:06 Outpatient JAIMIE ROMANO [facility] [id number] [facility] 2023-01-03 14:00:00 2023-01-03 14:13:06 [facility] & CHILD [facility] 1.840.114 350.1.13.10 4.2.7.2.686 [id number] [facility] 2022-10-11 14:00:00 2022-10-11 14:47:00 Outpatient MASON REED [facility] [id number] [facility] 2022-10-11 14:00:00 2022-10-11 14:47:00 Nurse Visit Visit, [facility] RESOURCE COORDINATOR [employer] MATERNAL & CHILD [facility] 1.840.114 350.1.13.10 4.2.7.2.686 [id number] [facility] 2022-08-01 15:00:00 2022-08-01 15:33:15 Outpatient RYLIE COATES FELECIA [facility] [id number] [facility] 2022-08-01 15:00:00 2022-08-01 15:33:15 Office Visit Rylie Davidson [facility] RESOURCE COORDINATOR [employer] MATERNAL & CHILD [facility] 1.840.114 350.1.13.10 4.2.7.2.686 [id number] [facility] 2022-08-01 09:30:00 2022-08-01 09:30:00 Outpatient RYLIE COATES RYLIE [facility] [id number] [facility] 2022-07-31 00:00:00 2022-07-31 00:00:00 Telephone Jaimie Almeida [facility] RESOURCE COORDINATOR [employer] MATERNAL & CHILD [facility] 1.840.114 350.1.13.10 4.2.7.2.686 [id number] [facility] 2022-07-30 01:16:00 2022-07-30 01:59:00 Emergency X RAF PERES [facility] ERT [id number] [facility] 2022-07-30 01:16:00 2022-07-30 01:59:00 Emergency Raf Peres [facility] 1.840.114 350.1.13.10 4.2.7.2.686 [id number] [facility] 2022-07-22 00:00:00 2022-07-22 00:00:00 Telephone Mason Mcneill [facility] RESOURCE COORDINATOR [facility] & CHILD [facility] 1.840.114 350.1.13.10 4.2.7.2.686 [id number] [facility] 2022-07-19 00:00:00 2022-07-19 00:00:00 Telephone Mason Mcneill [facility] RESOURCE COORDINATOR [facility] & CHILD [facility] 1.2.840.114 350.1.13.10 4.2.7.2.686 [id number] [facility] 2022-07-18 13:00:00 2022-07-18 13:56:27 [facility] [id number] [facility] 2022-07-18 13:00:00 2022-07-18 13:56:27 Office Visit Kaylin Mcneillsie [facility] RESOURCE COORDINATOR [facility] & CHILD [facility] 1.2.840.114 350.1.13.10 4.2.7.2.686 [id number] [facility] 2022-07-18 00:00:00 2022-07-18 00:00:00 Orders Only Doctor Unassigned, [place] [facility] 1.2.840.114 350.1.13.10 4.2.7.2.686 [id number] [facility] 2022-07-01 03:16:00 2022-07-01 05:00:00 Emergency X CHRISTOPHER VILCHIS [facility] [id number] [facility] 2022-07-01 03:16:00 2022-07-01 05:00:00 Emergency Christopher Vilchis S [facility] 1.2.840.114 350.1.13.10 4.2.7.2.686 [id number] [facility] 2021-11-16 07:01:00 2021-11-19 15:01:00 Inpatient Jaida Shultz [facility] OB [id number] [facility] 2021-11-01 10:11:00 2021-11-01 10:11:00 Outpatient Jaida PetersWH RADI [id number] [facility] 2021-07-19 00:00:00 2021-07-19 00:00:00 Telephone Blas Dao [facility] RESOURCE COORDINATOR [employer] [facility]ER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 Visit 2, [facility] Room Russell Barrett [facility] RESOURCE COORDINATOR [employer] MATERNAL & CHILD [facility] .840.114 350.1.13.10 4.2.7.2.686 [id number] [facility] 2021-07-18 10:00:00 2021-07-18 10:00:00 Outpatient P RUSSELL BARRETT [facility] [id number] [facility] 2021-07-18 09:00:00 2021-07-18 09:00:00 Outpatient P [facility] [id number] [facility] 2021-07-18 00:00:00 2021-07-18 00:00:00 Letter (Out) Russell Barrett [facility] RESOURCE COORDINATOR [facility] & CHILD [facility] .0.114 350.1.13.10 4.2.7.2.686 [id number] [facility] 2021-07-18 00:00:00 2021-07-18 00:00:00 Abstract Blas Dao [facility] RESOURCE COORDINATOR [employer] MATERNAL & CHILD [facility] .840.114 350.1.13.10 4.2.7.2.686 [id number] [facility] 2021-07-18 00:00:00 2021-07-18 00:00:00 Orders Only Doctor Unassigned, [place] [facility] 1..114 350.1.13.10 4.2.7.2.686 [id number] [facility] 2021-07-14 10:07:00 2021-07-14 11:45:00 Outpatient X DEXTER VIVIEN [facility] JAS[facility]ET [id number] [facility] 2021-07-14 10:07:00 2021-07-14 11:45:00 Emergency [place], Marcello RigocliftonVivien [facility] 1.84.114 350.1.13.10 4.2.7.2.686 [id number] [facility] 2021-07-13 00:00:00 2021-07-13 00:00:00 Orders Only Doctor Unassigned, [place] [facility] 1.840.114 350.1.13.10 4.2.7.2.686 [id number] [facility] 2021-06-28 10:45:00 2021-06-28 10:45:00 Outpatient P [facility] [id number] [facility] 2021-06-25 10:30:00 2021-06-25 10:45:59 Outpatient R RUIZ ANTHONY [facility] [id number] [facility] 2021-06-25 10:30:00 2021-06-25 10:45:59 Routine Visit Ruiz Anthony [facility] RESOURCE COORDINATOR [employer] MATERNAL [facility] CHILD [facility] 1.840.114 350.1.13.10 4.2.7.2.686 [id number] [facility] 2021-05-30 10:45:00 2021-05-30 11:27:39 Outpatient R BLAS DAO [facility] [id number] [facility] 2021-05-30 10:45:00 2021-05-30 11:27:39 Routine Visit Blas Dao [facility] RESOURCE COORDINATOR [employer] MATERNAL & CHILD [facility] 1.2840.114 350.1.13.10 4.2.7.2.686 [id number] [facility] 2021-05-28 00:00:00 2021-05-28 00:00:00 Abstract Dao, Blas Valladares [facility] RESOURCE COORDINATOR [employer] MATERNAL & CHILD [facility] 1.2.840.114 350.1.13.10 4.2.7.2.686 [id number] [facility] 2021-05-24 10:30:00 2021-05-24 11:00:00 Roof Truss Detailer [facility] RESOURCE COORDINATOR [employer] MATERNAL & CHILD [facility] 1.840.114 350.1.13.10 4.2.7.2.686 [id number] [facility] 2021-05-24 10:30:00 2021-05-24 10:30:00 Outpatient P ELIANA RANGEL [facility] [id number] [facility] 2021-05-09 11:00:00 2021-05-09 11:25:13 Routine Visit Blas Dao [facility] RESOURCE COORDINATOR [facility] & CHILD [facility] 1.840.114 350.1.13.10 4.2.7.2.686 [id number] [facility] 2021-05-09 11:00:00 2021-05-09 11:25:13 Outpatient R BLAS DAO [facility] [id number] [facility] 2021-04-16 00:00:00 2021-04-16 00:00:00 Telephone Vazquez Ackerman [facility] RESOURCE COORDINATOR [employer] MATERNAL & CHILD [facility] 1.840.114 350.1.13.10 4.2.7.2.686 [id number] [facility] 2021-04-16 00:00:00 2021-04-16 00:00:00 Telephone Ruiz Anthony [facility] RESOURCE COORDINATOR [employer] MATERNAL [facility] 1.2.840.114 350.1.13.10 4.2.7.2.686 [id number] [facility] 2021-04-16 00:00:00 2021-04-16 00:00:00 Telephone Vazquez Ackerman [facility] RESOURCE COORDINATOR [employer] MATERNAL & CHILD [facility] 1.2.840.114 350.1.13.10 4.2.7.2.686 [id number] [facility] 2021-04-11 09:00:00 2021-04-11 10:24:12 Initial Visit Provider, Sug-Rmchp Temp Vazquez Ackerman [facility] RESOURCE COORDINATOR [facility] & CHILD [facility] 1.2.840.114 350.1.13.10 4.2.7.2.686 [id number] [facility] 2021-04-11 08:30:00 2021-04-11 08:58:15 Outpatient R VAZQUEZ ACKERMAN [facility] [id number] [facility] 2021-04-11 00:00:00 2021-04-11 00:00:00 Orders Only Doctor Unassigned, [place] [facility] 1.2.840.114 350.1.13.10 4.2.7.2.686 [id number] [facility] 2019-07-02 01:00:52 2019-07-02 03:09:00 Emergency Darby Soriano [facility] 1.2.840.114 350.1.13.10 4.2.7.2.686 [id number] [facility] 2019-07-02 01:00:52 2019-07-02 01:00:52 Emergency X DARBY SORIANO [facility] ERT [id number] [facility] 2012-02-11 00:00:00 2012-02-11 16:03:48 Outpatient [facility] [id number] [facility] 2011-12-13 00:00:00 2011-12-13 09:23:40 Outpatient [facility] [id number] [facility] Results Test Description Test Time Test Comments Results Result Co mments [facility]34[facility]-02 14:41:41* Test Item Value Reference Range Interpretation Comme nts NA (test code = 1834217114) 140 mmol/L 135-145 K (test code = 2752998522) 3.7 mmol/L 3.5-5.0 CL (test code = 2793225928) 107 mmol/L 98-108 CO2 TOTAL (test code = 0005178041) 26 mmol/L 23-31 AGAP (test code = 4146544176) 7 2-16 BUN (test code = 2814242633) 4 mg/dL 7-23 L GLUCOSE (test code = 0457369947) 100 mg/dL 70-110 CREATININE (test code = 8422553038) 0.57 mg/dL 0.50-1.04 TOTAL BILI (test code = 2077833645) 0.5 mg/dL 0.1-1.1 CALCIUM (test code = 4329295370) 9.1 mg/dL 8.6-10.6 T PROTEIN (test code = 0697960533) 7.1 g/dL 6.3-8.2 ALBUMIN (test code = 4017921283) 4.0 g/dL 3.5-5.0 ALK PHOS (test code = 3215299396) 49 U/L 34-122 ALTv (test code = 1742-6) 11 U/L 5-35 AST(SGOT) (test code = 4231011224) 20 U/L 13-40 eGFR (test code = 93784-9) 132.0 mL/min/1.73m2 CKD-EPI eGFR (2020). Assuming creatinine has been stable day-to-day for at least three months, the eGFR indicates Category G1 (>= 90 mL/min/1.73 m2) Lab Interpretation (test code = 92066-0) [facility]normal [facility] 14:41:20* Test Item Value Reference Range Interpretation Comme nts LIPASE (test code = 5895671648) 214 U/L 0-220 Lab Interpretation (test cod e = 53343-7) Normal [facility] [id number] 14:02:00* Test Item Value Reference Range Interpretation Comme nts POCT PREG (test code = 1605) Negative On board controls acceptable with C Line (test code = 3574) Yes POCT PREG LOT # (test code = 3575) [id number] POCT PREG TEST DATE ( test code = 3576) 06/01/2024 Lab Interpretation (test cod e = 70562-2) Normal [facility] [id number] 18:50:00* Test Item Value Reference Range Interpretation Comme nts POCT PREG (test code = 1605) Negative On board controls acceptable with C Line (test code = 3574) Yes POCT PREG LOT # (test code = 3575) POCT PREG TEST DATE ( test code = 3576) [facility] [id number] 18:50:00* Test Item Value Reference Range Interpretation Comme nts POCT PREG (test code = 1605) Negative On board controls acceptable with C Line (test code = 3574) Yes POCT PREG LOT # (test code = 3575) POCT PREG TEST DATE ( test code = 3576) [facility] [id number] 08:17:00* Test Item Value Reference Range Interpretation Comme nts POCT PREG (test code = 1605) Negative On board controls acceptable with C Line (test code = 3574) Positive POCT PREG LOT # (test code = 3575) [id number] POCT PREG TEST DATE ( test code = 3576) 04/23/2023 Lab Interpretation (test cod e = 07749-8) [facility] [id number] 06:54:00* Test Item Value Reference Range Interpretation Comme nts HEMOGLOBIN (test code = HGB) 9.7 g/dL 10.1-13.8 L HEMATOCRIT (test code = HCT) 29.3 % 32.5-41.8 L COMPREHENSIVE METABOLIC [id number] 07:25:00* Test Item Value Reference Range Interpretation Comme nts SODIUM (test code = NA) 138 mEq/L 135-145 N POTASSIUM (test code = K) 3.6 mEq/L 3.5-5.0 N CHLORIDE (test code = CL) 105 mEq/L 100-115 N CARBON DIOXIDE (test code = CO2) 23 mEq/L 22-31 N ANION GAP (test code = GAP) 13.40 10-20 N GLUCOSE (test code = GLU) 103 mg/dL 65-110 N BLOOD UREA NITROGEN (test co de = BUN) 4 mg/dL 7-18 L GLOMERULAR FILTRATION RATE ( test code = GFR) 176 ml/min >60 N CREATININE (test code = CREAT) 0.5 mg/dL 0.5-1.0 N TOTAL PROTEIN (test code = PROT) 5.9 gm/dL 6.3-8.2 L ALBUMIN (test code = ALB) 2.4 gm/dL 3.4-4.8 L CALCIUM (test code = CA) 8.0 mg/dL 8.4-10.2 L BILIRUBIN TOTAL (test code = BILT) 1.0 mg/dL 0.2-1.0 N SGOT/AST (test code = AST) 24 units/L 15-37 N SGPT/ALT (test code = ALT) 17 units/L 12-78 N ALKALINE PHOSPHATASE TOTAL ( test code = ALKP) 178 units/L 46-116 H LACTIC [id number] 07:14:00* Test Item Value Reference Range Interpretation Comme nts LACTIC ACID (test code = LACT) 1.4 MMOL/L 0.5-2.2 N PROTHROMBIN [id number] 06:55:00* Test Item Value Reference Range Interpretation Comme nts PROTHROMBIN TIME PATIENT (te st code = PTP) 11.2 secs 10.1-12.3 N IS PATIENT ON ANTICOAGULANTS ? NINTERNATIONAL NORMAL [id number] 06:55:00* Test Item Value Reference Range Interpretation Comme nts INTERNATIONAL NORMAL RATIO (test code = INR) 0.98 The INR is to be used only for monitoring oral anticoagulanttherapy. INDICATION INR VALUE 1. Prophylaxis including high risk surgery 2.0 - 2.52. Deep venous thrombosis. Pulmonary embolism. Atrial fibrillation or bioprosthetic heart valves 2.0 - 3.03. Mechanical heart valves or recurrent systemic embolism. 3.0 - 3.5 IS PATIENT ON ANTICOAGULANTS ? NTHROMBOPLASTIN TIME [id number] 06:55:00* Test Item Value Reference Range Interpretation Comme nts THROMBOPLASTIN TIME PARTIAL (test code = PTT) 26.8 secs 22-38 N IS PATIENT ON ANTICOAGULANTS ? NCBC W/AUTO [id number] 06:43:00* Test Item Value Reference Range Interpretation Comme nts WHITE BLOOD CELL (test code = WBC) [...] pg 27.3-33.9 N MEAN CELL HGB CONCETRATION ( test code = MCHC) 33.3 gm/dL 32.0-34.2 N RED CELL DISTRIBUTION WIDTH (test code = RDW) 14.9 % 12.2-16.3 N PLATELET COUNT (test code = PLT) 232 K/mm3 134-363 N MEAN PLATELET VOLUME (test c ode = MPV) 10.0 fL 9.2-12.7 N NEUTROPHIL % (test code = NT%) 81.9 [...] = BA#) 0.0 K/mm3 RBC MORPHOLOGY REQUIRED (juan t code = RBCM) NORMAL NORMAL PLATELET MORPHOLOGY REQUIRED (test code = PLTMR) NORMAL NORMAL AG HEPATITIS B [id number] 09:34:00* Test Item Value Reference Range Interpretation Comme nts AG HEPATITIS B SURFACE (test code = HBSAG) NONREACTIVE NONREACTIVE AB HEPATITIS C [id number] 09:34:00* Test Item Value Reference Range Interpretation Comme nts AB HEPATITIS C (test code = HCVAB) NONREACTIVE NONREACTIVE SIGNAL TO CUTOFF (test code = CUTOFF) 0.19 <0.80 N AB [id number] 09:34:00* Test Item Value Reference Range Interpretation Comme nts AB TREPONEMA (test code = TREPAB) NONREACTIVE NONREACTIVE AB HIV 1 09:34:00* Test Item Value Reference Range Interpretation Comme nts AB HIV 1 2 (test code = FOI50XJ) NONREACTIVE NONREACTIVE Done by [employer] 4th Gen HIV Ag/Ab Combo Screen COVID 19 Asymptomatic IH [id number] 08:27:00* Test Item Value Reference Range Interpretation Comme nts COVID 19 Asymptomatic IH AG (test code = COVNONPUIAG) NEGATIVE NEGATIVE This test has be en authorized only for the detection ofproteins from SARS-CoV-2, not for any other viruses orpathogens. Negative results should be treated as presumptive andconfirmed with a molecular assay, if necessary for patientmanagement. Negative results do not rule out COVID-19 andshould not be used as the sole basis for treatment orpatient management decisions, including infection controldecisions. Negative results should be considered in thecontext of a patient's recent exposures, history and thepresence of clinical signs and symptoms consistent withCOVID-19. This test has not been FDA cleared or approved; the test hasbeen authorized by FDA under an Emergency Use Authorization(EUA) for use by laboratories certified under the CLIA thatmeet the requirements to perform moderate, high or waivedcomplexity tests. This test is authorized for use at thePoint of Care (POC), i.e., in patient care settingsoperating under a CLIA Certificate of Waiver, Certificate ofCompliance, or Certificate of Accreditation. This test is only authorized for the duration of thedeclaration that circumstances exist justifying theauthorization of emergency use of in vitro diagnostic testsfor detection and/or diagnosis of COVID-19 under Heqbitc613(b)(1) of the Act, 21 U.S.C. 360bbb-3(b)(1), unless theauthorization is terminated or revoked sooner. CBC W/AUTO [id number] 08:05:00* Test Item Value Reference Range Interpretation Comme nts WHITE BLOOD CELL (test code = WBC) [...] pg 27.3-33.9 N MEAN CELL HGB CONCETRATION ( test code = MCHC) 33.6 gm/dL 32.0-34.2 N RED CELL DISTRIBUTION WIDTH (test code = RDW) 14.9 % 12.2-16.3 N PLATELET COUNT (test code = PLT) 233 K/mm3 134-363 N MEAN PLATELET VOLUME (test c ode = MPV) 9.8 fL 9.2-12.7 N NEUTROPHIL % (test code = NT%) 70.6 [...] = BA#) 0.0 K/mm3 RBC MORPHOLOGY REQUIRED (juan t code = RBCM) NORMAL NORMAL PLATELET MORPHOLOGY REQUIRED (test code = PLTMR) NORMAL NORMAL - US [facility] [id number] 00:00:00 [facility] 2000 Sex: F Patient Name: MISBAH NUÑEZ Unit No: [id number] EXAMS: CPT CODE: [id number] [place] [facility] [place] [address] PROCEDURE INFORMATION: Exam: US ; Follow up Exam date and time: 11/01/2021 10:49 AM Age: 20 yearsold Clinical indication: Screening exam; Other: Size less than dates; LABS AND CLINICAL REPORTS: Gestational age (Established): 37 w 6 d Estimated due date (Established): 11/16/2021 TECHNIQUE: Imaging protocol: Transabdominal ultrasound of the uterus, real time with image documentation. Follow-up (eg, re-evaluation of size by measuring standard growth parameters and amniotic fluid volume, re-evaluation of organ system(s) suspected or confirmed to be abnormal on a previousscan). COMPARISON: No relevant prior studies available. FINDINGS: Gestation: Intrauterine gestation. heart rate: 130 bpm presentation: Cephalic presentation. Placenta: Anterior grade 3 placenta without placenta previa. Amniotic fluid index: SISSY is 11.7 cm. Maximum vertical pocket is 3.8cm. BIOMETRY: Gestational age (AUA): 35 weeks, 6 days [...] 21.26 (20.10-22.13) FL/BPD: 75.88 (71-87) FL/AC: 22.48 (20- 24) MATERNAL: Cervix: The cervix measures 2.7 cm. Right ovary/adnexa: The right ovary was not visualized. No adnexal mass. Left ovary/adnexa: The left ovary measures3.4 x 2.6 x 3.3 cm. [facility] NAME: SAVANNAHMISBAH Radiology Department PHYS: Jaida Majano MD [address] : 2000 AGE: 20 SEX: F [place], [place] [address] LOC: CINDY PHONE #: [phone] EXAM DATE: 11/01/2021 STATUS: REG CLI FAX #: [phone] RAD NO: Page 1 Signed Report (CONTINUED) Patient Name: MISBAH NUÑEZ Unit No: [id number] EXAMS: CPT CODE: [id number] [place] [address] (Continued) Normal contour. IMPRESSION: 1. Estimated gestational age is 35 weeks, 6 days by today's exam with estimated weight of 2792 g (30th percentile for established dates). 2. Relatively small abdominal circumference with normal biometric ratios. at 1347 Reported and signed by:Shiv Bruce MD CC: Jaida Castañeda MD Technologist: Scarlett Romeo RDMS Probe: Trnscrbd D/ (1347) GCD.CPS Orig Print D/T: S: 11/01/2021 (1348) [facility] NAME: MISBAH NUÑEZ Radiology Department PHYS: Jaida Majano MD [address] : 2000 AGE: 20 SEX: F [place], [place] [address] LOC: SandraRAD PHONE #: [phone] EXAM DATE: 11/01/2021 STATUS: REG CLI FAX #: [phone] RAD NO: Page 2 Signed Report Patient Name:MISBAH NUÑEZ Unit No: [id number] EXAMS: CPT CODE: [id number] [place] FLW UP 21874 (Continued) [facility] NAME: MISBAH NUÑEZ Radiology Department PHYS: Jaida Majano LMThais [address] : 2000 AGE: 20 SEX: F [place] [address] LOC: Sandra[facility] PHONE #: [phone] EXAM DATE: 11/01/2021 STATUS: REG CLI FAX #: [phone] RAD NO: Page 3 Signed ReportPOCT URINALYSIS W SPECIFIC GRAVITY 2021-06-25 15:29:00* Test Item Value Reference Range Interpretation Comme nts POCT U SP GRAV (test code = 3255) . 1.005-1.025 POCT PH U (test code = 3254) 7 mg/dl 5-8 POCT U LEUK EST (test code = 3263) neg Negative - Negative POCT U NIT (test code = 3262) neg Negative - Negati ve POCT U PROT (test code = 3259) neg Negative - Negat daniel POCT U GLU (test code = 3256) neg Negative - Negati ve POCT U KETONE (test code = 3258) neg Negative - Neg ative POCT U UROBILI (test code = 3260) . 0.2-1 POCT U BILI (test code = 3261) . Negative - Negat daniel POCT U BLD (test code = 3257) neg Negative - Negati ve POCT U COLOR (test code = 3266) POCT U APPEAR (test code = 3267) [facility] URINALYSIS W SPECIFIC VSTKZYJ0992-03-28 16:58:00* Test Item Value Reference Range Interpretation Comme nts POCT U SP GRAV (test code = 3255) na 1.005-1.025 POCT PH U (test code = 3254) 6 mg/dl 5-8 POCT U LEUK EST (test code = 3263) 2+ Negative - Negative POCT U NIT (test code = 3262) negative Negative - Negati ve POCT U PROT (test code = 3259) trace Negative - Negat daniel POCT U GLU (test code = 3256) negative Negative - Negati ve POCT U KETONE (test code = 3258) negative Negative - Neg ative POCT U UROBILI (test code = 3260) na 0.2-1 POCT U BILI (test code = 3261) na Negative - Negat daniel POCT U BLD (test code = 3257) trace Negative - Negati ve POCT U COLOR (test code = 3266) POCT U APPEAR (test code = 3267) Lab Interpretation (test cod e = 60517-0) Abnormal [facility] URINALYSIS W SPECIFIC ABEICSU2520-69-84 17:03:00* Test Item Value Reference Range Interpretation Comme nts POCT U SP GRAV (test code = 3255) na 1.005-1.025 POCT PH U (test code = 3254) 6 mg/dl 5-8 POCT U LEUK EST (test code = 3263) neg Negative - Negative POCT U NIT (test code = 3262) neg Negative - Negati ve POCT U PROT (test code = 3259) trace Negative - Negat daniel POCT U GLU (test code = 3256) neg Negative - Negati ve POCT U KETONE (test code = 3258) 3+ Negative - Neg ative POCT U UROBILI (test code = 3260) na 0.2-1 POCT U BILI (test code = 3261) na Negative - Negat daniel POCT U BLD (test code = 3257) neg Negative - Negati ve POCT U COLOR (test code = 3266) POCT U APPEAR (test code = 3267) Lab Interpretation (test cod e = 40204-0) Abnormal [facility] Notes Date/Time Note Provider Source 2023-04-02 09:27:05 TD8wiWxkoqaDL22da+plmAAmf8QP7C7wjmpQ/rCK 09ievgOpxif3WtLsyBfhbrTH9282-60-79O71:27 :05 Written/verbal d/c instructions, out of ER no distress 40044-4Lcfzwdkcc department DhrgKX4810-49-76Z57:27:22[facility] NoteTXT1.2.840.849017.1.13.104.2.7.2.727 879|[id number] for patient farn42147-4FfcdNIOGGMILAMLJchhmonki C-CDA narrative [id number] M. Barton RN[id number] NLGSEKXWVWWSVIIPJD5963-69-57M54:27:221.2 .840.495697.1.72.3.15|1.2.840.416863.1.1 3.104.2.7.2.727879_[id number] Ana Medel RN [facility] 2023-04-02 09:14:01 fwWm2gIu1HeonFV7eeTBD0IfnF5VArfG/oMdWC7n ON3884BwnIzYc+ofp42XoUMc8390-05-49W96:14 :01 PO fluids provided, noted for work per request 19159-2Obwbxernh department QjefRX5985-97-18J24:14:18[facility] NoteTXT1.2.840.591389.1.13.104.2.7.2.727 879|[id number] for patient tfhd47677-9QgvzEZIAOGIJNQIRdshxodqy C-CDA narrative textUT63 Graham [id number] MOOREOYGFXXLUFXFUKEFQJM1208-08-50Y26:14:181.2 .840.125744.1.72.3.15|1.2.840.116240.1.1 3.104.2.7.2.727879_[id number] [facility] 2023-04-02 07:20:05 rh7rlWI1Fr25w23PL15/ePVsf5J4jMX3MwGAqad9 LYwD5zAbW4R5v6eVKkfGf1GC6518-10-63E33:20 :05 Pt states "I woke up around 6AM with bad stomach cramping with nausea and diarrhea". Reports being on Depo shot. Took 2 "OTC pain relievers" and states symptoms have resolved. 61387-3Lasqztnvr department Triage hmcnAU3946-83-60A11:22:47[facility] Triage noteTXT1.2.840.505255.1.13.104.2.7.2.727 879|[id number] for patient bhhd75043-1Bubdwkajt department NoteLNNARRATIVEFormatted C-CDA narrative [id number] N Dewoody RNUT[address] [id number] DIAZVDRWQUXKMKABEIVHVZ3652-00-12E62:22:471.2 .840.598257.1.72.3.15|1.2.840.400045.1.1 3.104.2.7.2.727879_[id number] Nicol Maya RN [facility] 2023-04-02 07:16:00 4pCusTCVDgUw73Pmm4QiWuC/Esf+7BOXjDAZSkpf pcE6ROhze29HW60fKB373jGl8166-81-53Q76:16 :00 [facility] Emergency Department NoteDemographicsPatient Name: Misbah NuñezDate of : 2000 22 year oldTreatment Room: [address]-03Zpywpab Record Number: [id number] Care Physician: [facility] CarePatient Escorted by: Self [9]Mode of Arrival: Personal means [1]EMS Treatment Prior to ED Arrival:PICKER treatment: Medication (comment)PICKER treatment comments: see triage noteED EventsDate/Time Event User Coxcbczz31/10/24735 Medical Screening Begins TRIXIE BROWN MD --04/02/23735 First Provider Evaluation TRIXIE BROWN MD --Chief complaintChief ComplaintPatient presents withAbdominal PainResolvedED Triage NotesNicol Maya RN 04/02/2023 07:22Pt states "I woke up around 6AM with bad stomach cramping with nausea and diarrhea". Reports being on Depo shot. Took 2 "OTC pain relievers" and states symptoms have resolved.Original note by Nicol Maya RN at 04/02/2023 07:22Chief ComplaintPatient presents withAbdominal PainResolvedHistory of present nlqofbdAKW39 yo woman comes to the ED complaining of generalized abdominal cramping starting this am with nausea and diarrhea. She took Ibuprofen and symptoms subsided. Denies any chronic medical problems or medications. . Denies fever, chills, or dysuria.Past Medical and Social HistoryPast Medical History:Diagnosis DateAsthma OVI-eg pain, right 06/05/2015Tetanus received in last 5 years: UnknownSocial HistoryTobacco UseSmoking status: NeverSmokeless tobacco: NeverVaping UseVaping Use: Never usedSubstance Use TopicsAlcohol use: YesComment: Every few monthsDrug use: NeverPast Surgical HistoryNo past surgical history on file.MedicationsMedications - No data to displayAllergiesAllergiesAllergen ReactionsSeafood/Fish HivesReview of SystemsReview of SystemsConstitutional: Negative.HENT: Negative.Eyes: Negative.Respiratory: Negative.Cardiovascular: Negative.Gastrointestinal: Positive for abdominal pain, diarrhea and nausea.Genitourinary: Negative.Musculoskeletal: Negative.Skin: Negative.Neurological: Negative.Psychiatric/Behavioral: Negative.Endocrine: Endocrine negativePhysical ExamBP 111/71 | Pulse 70 | Temp 36.3 ?C (97.4 ?F) (Oral) | Resp 16 | Ht 1.6 m (5' 3") | Wt 68 kg (150 lb) | SpO2 99% | BMI 26.57 kg/m?Physical ExamVitals and nursing note reviewed.Constitutional:General: She is not in acute distress.Appearance: She is well-developed and normal weight. She is not ill-appearing.HENT:Head: Normocephalic and atraumatic.Right Ear: External ear normal.Left Ear: External ear normal.Nose: Nose normal. No congestion or rhinorrhea.Mouth/Throat:Pharynx: No oropharyngeal exudate or posterior oropharyngeal erythema.Eyes:General:Right eye: No discharge.Left eye: No discharge.Conjunctiva/sclera: Conjunctivae normal.Pupils: Pupils are equal, round, and reactive to light.Cardiovascular:Rate and Rhythm: Normal rate and regular rhythm.Heart sounds: Normal heart sounds. No murmur heard.No friction rub.Pulmonary:Effort: Pulmonary effort is normal. No respiratory distress.Breath sounds: Normal breath sounds. No stridor. No wheezing or rhonchi.Abdominal:General: Bowel sounds are normal. There is no distension.Palpations: Abdomen is soft. There is no mass.Tenderness: There is abdominal tenderness (suprapubic).Hernia: No hernia is present.Musculoskeletal:General: No swelling, tenderness, deformity or signs of injury. Normal range of motion.Cervical back: Normal range of motion and neck supple. No rigidity or tenderness.Skin:General: Skin is warm.Capillary Refill: Capillary refill takes less than 2 seconds.Coloration: Skin is not jaundiced or pale.Findings: No bruising or erythema.Neurological:General: No focal deficit present.Mental Status: She is alert and oriented to person, place, and time.Cranial Nerves: No cranial nerve deficit.Sensory: No sensory deficit.Motor: No weakness.Coordination: Coordination normal.Psychiatric:Mood and Affect: Mood normal.Behavior: Behavior normal.Thought Content: Thought content normal.Judgment: Judgment normal.Labs and StudiesLab ResultsCBC WITH DIFF - AbnormalResult Value Ref RangeWBC 4.37 4.30 - 11.10 10*3/?LRBC 4.48 3.93 - 5.25 10*6/?LHGB 13.2 11.6 - 15.0 g/dLHCT 40.7 35.7 - 45.2 %MCV 90.8 80.6 - 95.5 fLMCH 29.5 25.9 - 32.8 pgMCHC 32.4 31.6 - 35.1 g/dLRDW-SD 45.2 39.0 - 49.9 fLRDW-CV 13.4 12.0 - 15.5 %PLT 290 166 - 358 10*3/?LMPV 10.1 9.5 - 12.9 fLNRBC/100 WBC 0.0 0.0 - 10.0 /100 WBCsNRBC x10^3 <0.01 10*3/?LGRAN MAT (NEUT) % 44.0 %IMM GRAN % 0.20 %LYMPH % 47.4 %MONO % 5.0 %EOS % 3.2 %BASO % 0.2 %GRAN MAT x10^3(ANC) 1.92 1.88 - 7.09 10*3/uLIMM GRAN x10^3 <0.03 0.00 - 0.06 10*3/uLLYMPH x10^3 2.07 1.32 - 3.29 10*3/uLMONO x10^3 0.22 (*) 0.33 - 0.92 10*3/uLEOS x10^3 0.14 0.03 - 0.39 10*3/uLBASO x10^3 <0.03 0.01 - 0.07 10*3/uLREACT LYMPHS RareCOMP. METABOLIC PANEL (59531) - AbnormalNA 140 135 - 145 mmol/LK 3.7 3.5 - 5.0 mmol/LCL 107 98 - 108 mmol/LCO2 TOTAL 26 23 - 31 mmol/LAGAP 7 2 - 16BUN 4 (*) 7 - 23 mg/dLGLUCOSE 100 70 - 110 mg/dLCREATININE 0.57 0.50 - 1.04 mg/dLTOTAL BILI 0.5 0.1 - 1.1 mg/dLCALCIUM 9.1 8.6 - 10.6 mg/Jose PROTEIN 7.1 6.3 - 8.2 g/dLALBUMIN 4.0 3.5 - 5.0 g/dLALK PHOS 49 34 - 122 U/LALTv 11 5 - 35 U/LAST(SGOT) 20 13 - 40 U/LeGFR 132.0 mL/min/1.50k8WMUOHXPEBR - AbnormalAPPEARANCE Cloudy (*) ClearCOLOR Yellow YellowPH 5.0 4.8 - 8.0SP GRAVITY 1.025 1.003 - 1.030GLU U QUAL Normal NormalBLOOD 3+ (*) NegativeKETONES Negative NegativePROTEIN 30 mg/dL (*) NegativeUROBILIN Normal NormalBILIRUBIN Negative NegativeNITRITE Negative NegativeLEUK CORY 500/uL (*) NegativeRBC/HPF 46 (*) 0 - 3 HPFWBC/HPF 14 (*) 0 - 5 HPFBACTERIA Moderate (*) NegativeMUCOUS Marked (*) Negative LPFSQ EPITH 22 HPFLIPASE - NormalLIPASE 214 0 - 220 U/LPOCT TEST - NormalPOCT PREG NegativeOn board controls acceptable with C Line YesPOCT PREG LOT # [id number] PREG TEST DATE 06/01/2024No orders to displayOrders and TreatmentsOrders Placed This EncounterProceduresCBC WITH DIFFCOMP. METABOLIC PANEL (36396)LIPASEURINALYSISPOCT TESTOrders Placed This EncounterMedicationscefpodoxime 100 mg tabletPatient's MedicationsSTART taking these medicationsCEFPODOXIME 100 MG TABLET Take 1 tablet by mouth in the morning and 1 tablet in the evening. Do all this for 7 days.CONTINUE taking these medications which have NOT CHANGEDAMOXICILLIN-POT CLAVULANATE 500 MG 500-125 MG TABLET Take 1 tablet by mouth every 8 (eight) hours.METHYLPREDNISOLONE 4 MG TABLETS Take by mouth SEE-INSTRUCTIONS. follow package directionsSTART taking Modified Medications as PrescribedNo medications on fileSTOP taking these medicationsNo medications on fileProceduresProceduresEvidence CareMDM & NotesPatient was evaluated for an emergency medical condition related to Abdominal Pain (Resolved).History and/or review of systems is limited by:History limited: None.Medical Decision [age]hyf84 yo woman comes to the ED complaining of generalized abdominal cramping starting this am with nausea and diarrhea. She took Ibuprofen and symptoms subsided. Denies any chronic medical problems or medications. . Denies fever, chills, or dysuria.DDx: gastroenteritis, abdominal pain, nausea.AP: will check labs, cbc, chemistry, urinalysis and .IV Fluids and continue to monitor.Problems Addressed:Generalized abdominal pain: acute illness or injuryAmount and/or Complexity of Data ReviewedLabs: ordered. Decision-making details documented in ED Course.Details: UTI notedDiscussion of management or test interpretation with external provider(s): UTI noted, otherwise normal labs.Physical exam with suprapubic pain in keeping with UTI/cystitis.Currently no abdominal pain, nausea or vomiting. Tolerating PO.Start oral antibiotics, advised to f/u with PCP and return to the ED if worsening of symptoms. Patient understands and agrees with the plan.ED Course as of 04/02/23 0918Wed Apr 02 MUCOUS(!): Marked [JJ]0858 BACTERIA(!): Moderate [JJ]0858 WBC/HPF(!): 14 [JJ]0858 RBC/HPF(!): 46 [JJ]0858 LEUK CORY(!): 500/uL [JJ]0858 APPEARANCE(!): Cloudy [JJ]ED Course User Index[JJ] Trixie Brown, MDDiagnosis/Impression as of 04/02/23 0918Generalized abdominal painUrinary tract infection without hematuria, site unspecifiedCase discussed with:Barriers & Social Determinants of Healthcare: noneLimitations to patient care and compliance: none.History, physical exam findings, results of visit, differential diagnosis, medication regimens and plan of future care have been considered. Additional MDM may be found in the ED course. Differential diagnosis considered and final disposition made based on information gathered during evaluation and may not be completely ruled out or specifically listed. Vital signs were rechecked before final disposition and determined to be stable.ZgjttizzzNUY-12-SW6. Generalized abdominal pain R10.842. Urinary tract infection without hematuria, site unspecified N39.0Disposition and ConditionED DispositionED DispositionDisch - HomeConditionStableComment--Patient's MedicationsSTART taking these medicationsCEFPODOXIME 100 MG TABLET Take 1 tablet by mouth in the morning and 1 tablet in the evening. Do all this for 7 days.CONTINUE taking these medications which have NOT CHANGEDAMOXICILLIN-POT CLAVULANATE 500 MG 500-125 MG TABLET Take 1 tablet by mouth every 8 (eight) hours.METHYLPREDNISOLONE 4 MG TABLETS Take by mouth SEE-INSTRUCTIONS. follow package directionsSTART taking Modified Medications as PrescribedNo medications on fileSTOP taking these medicationsNo medications on fileFuture AppointmentsIn 1 week Visit, [facility]Med[facility] Networkjosé miguel Nurse [facility], Berna Ibrahim BENITO [employer] is used frequently and may produce errors. Promptly contact for obvious discrepancies.Trixie Brown MD, FACEP, FAAEMAssistant Professor of Emergency and Internal MedicineWhite Plains Hospital#[id number] Brown MD04/02/23 0918 15259-2Xaycofuxi Emergency department FhdzBG6751-03-08M28:18:13Physician Emergency department NoteTXT1.2.840.071997.1.13.104.2.7.2.727 879|[id number] for patient ecqi08834-0Eghvflrdf department NoteLNNARRATIVEFormatted C-CDA narrative textUT[address] Kb[id number] GUHJEIIXMKNOZJAEWM3294-12-29Q25:18:131.2 .840.711674.1.72.3.15|1.2.840.706743.1.1 3.104.2.7.2.727879_[id number] [facility] 2021-11-22 13:11:00 [id number]/HrCrK0lX5zkDv6 UDs/aEVW2TjU/GkvbyfLgXW0F9GWPnn4m5910673 -09-01T13:11:399756-6228 [facility] [address] [place] [address] patient name: misbah nuñez admit date: 11/16/21account no: [id number] room no: [facility] age: 20 sex: f admitting physician: jaida castañeda md attending physician: jaida castañeda md provider query query text: condition general 360md query related questions should be directed to:[facility] coding query helpline [based on your clinical judgement, can you please clarify if chorioamnionitis was confirmed, chorioamnionitis not confirmed, or other more appropriate diagnosis?] the patient's clinical indicators include:chorioamnionitis :critical care event note 11/17/2021 (1)patient had 101 fever and was tachycardic and code sepsis was called in at 6.30 i was asked to evaluate when i came in this morning :itical care event note 11/17/2021 (1) at that time advised clinda and tobramycin was started for possible chorioamnionitis :critical care event note 11/17/2021 (1) options provided:-- respond - create new note now-- dismiss - not applicable / not valid-- dismiss - clinically unable to determine / unknown-- assign to another provider query response: presumed chorioamnionitis query created by: martin corona on 11/21/2021 9:38 pm electronically signed by jaida castañeda md on 11/22/21 at 1311 patient name: misbah nuñez noteF.[id number] for patient efjfWXLLSOZAOKFCXE6793-47-81K99:12:20 [facility] 2021-11-19 13:32:00 [id number]/CD1yGqSdBHqslGT5kQj0RdkOB G6zZIPT7elm04/Ck/U75ImgKxmkNBiGj9SaJ1001 -08-29T13:32:00 [facility] ([facility])ob postpart progr notereport#:[id number] report status: signeddate:11/19/21 time: 1332 patient: misbah nuñez unit #: [id number]#: [id number] [address] age: 20 sex: f attend: jaida castañeda [facility] dt: 11/16/21 author: jaida castañeda md * all edits or amendments must be made on the electronic/computer document * subjective subjectiveadmission ega: weeks: 40 days: 0ega at delivery (wks/days): 40 weeksstatus/day: post partumcomments: day #2 subjective: no complaints. scant lochia. tolerating a regular diet. ambulatory.voiding spontaneously. nursing. objective: vital signs stable. afebrile fundus is firm, low and nontender. perineum/suture sites are healing well and intact. assessment: recovering well after . plan: doing well and ready for discharge home. rx: motrin 600 mg 1 tab po q 6 hours prn pain # 30 resume pnv and iron as before delivery. return to office in 6 weeks. discharge instructions have been given diagnosis, assessment plan diagnosis, assessment planproblem list/a p: 1. term 2. second degree perineal laceration during delivery, delivered 3. delivery outcome of single liveborn 4. acute blood loss anemia free text a p:s/p nvd - recovering wellanema - iron supplementready for dischargeassessment: nml progress, acute blood loss anemiaplan: routine care, discharge todayplan discussed with: patient, family electronically signed by jaida castañeda md on 11/19/21 at 1332 rpt #:[id number] of report PRProgress laxn2902-88-46M16:32:00F.WKMS04944904-19 50AVAvailable for patient dngmRPVLONIEUYTLCB1936-37-41I36:33:17 [facility] 2021-11-18 07:07:00 [id number]/PZbVG4f9a61lKFMT x7gBRd1fdJMNs47yWQTGWS7g5AN9LuWfY5kA2297 -07:07:00 [facility] [place] ([facility])ob postpart progr notereport#:[id number] report status: signeddate:11/18/21 time: 706 patient: misbah nuñez unit #: [id number]#: [id number] room[facility]-adob: 00 age: 20 sex: f attend: jaida castañeda mdadm dt: 11/16/21 author: jaida castañeda md * all edits or amendments must be made on the electronic/computer document * subjective subjectiveadmission ega: weeks: 40 days: 0ega at delivery (wks/days): 40 weeksstatus/day: post objective nursing documentation reviewnursing data:the data set between the solid lines has been imported from nursing documentation. any exceptions have been noted below under provider comments. feeding preference: post hemorrhage risk score: medium risk for hemorrhage provider comments on imported nursing data: [] postpartum day #1.5 subjective: no complaints. scant lochia. tolerating a regular diet. ambulatory.voiding spontaneously. nursing. objective: vital signs stable. afebrilevital signs: date time temp pulse resp b/p b/p pulse o2 o2 flow fio2 mean ox delivery rate 11/17 2300 78.0 11/17 2300 98.0 94 18 101/67 fundus is firm, low and nontender. perineum/suture sites are healing well and intact. laboratory tests: 11/18 0617 hematology hgb (10.1 - 13.8 g/dl) 9.7 l hct (32.5 - 41.8 %) 29.3 l assessment: recovering well after . plan: doing well and ready for discharge home. rx: motrin 600 mg 1 tab po q 6 hours prn pain # 30 resume pnv and iron as before delivery. return to office in 6 weeks. discharge instructions have been given diagnosis, assessment plan diagnosis, assessment planproblem list/a p: 1. term 2. second degree perineal laceration during delivery, delivered 3. delivery outcome of single liveborn infant 4. acute blood loss anemia free text a p:s/p nvd - recovering wellanema - iron supplementready for dischargeassessment: nml progress, acute blood loss anemiaplan: routine care, discharge todayplan discussed with: patient electronically signed by jaida castañeda md on 11/18/21 at 0710 rpt #:[id number] of report PRProgress mizc3998-70-23G81:07:00F.VVXT03044431-46 47AVAvailable for patient mwktSHGVJDVYETMLHQ8528-14-23I21:10:52 [facility] 2021-11-17 15:35:00 [id number]wfeE 2yx4d2pTFF0wr6KxokrN7fdVJ85CZxWZK7XW3715 -08-27T15:35:00 [facility] ([facility])critical care event notereport#:[id number] report status: signeddate:11/17/21 time: 1535 patient: misbah nuñez unit #: [id number]#: [id number] room/bed: f.4402-adob: 00 age: 20 sex: f attend: jaida castañeda mdadm dt: 11/16/21 author: adebayo fine md * all edits or amendments must be made on the electronic/computer document * critical care event event noteevent type: code sepsis was calledevent details:patient had 101 fever and was tachycardic and code sepsis was called in at 6.30 i was asked to evaluate when i came in this morning ,i went to evaluate her , patient is at 40 1/7wk , arom was done at 2335, clear , gbs negative around 6 am code sepsis was called in, she has temp of 101 and pr 120 and fhr baseline changed from 120 to 150s with temperature at that time advised clinda and tobramycin was started for possible chorioamnionitis repeat cbc was sent at this time and wbc count was a little elevated form her prior initially 8 andchanged to 10.1patient was doing fine after starting the antibiotic continue antibiotic and augmentation of labor informed the primary ob electronically signed by adebayo fine md on 11/21/21 at 0522 rpt #:[id number] of report PRProgress adel1131-41-06P70:35:00F.FOHA35999624-17 76AVAvailable for patient rmvbPWQRZBXBQOEIPG3726-00-22Y16:22:25 [facility] 2021-11-17 12:18:00 [id number]+LdJo mMcdrCwYAc4YA/b3P/fd3ZsvNLueTy71jN3k8098 -08-27T12:18:00 [facility] [place] ([facility])ob delivery notereport#:[id number] report status: signeddate:11/17/21 time: 1218 patient: misbah nuñez unit #: [id number]#: [id number] [facility] age: 20 sex: f attend: jaida castañeda mdadm dt: 11/16/21 author: jaida castañeda md * all edits or amendments must be made on the electronic/computer document * ob delivery nursing documentation reviewnursing data:the data set between the solid lines has been imported from nursing documentation. any exceptions have been noted below under provider comments. rom date: 11/16/21 rom time: 2335membranes rupture method: aromamniotic fluid color: clearamniotic fluid amount: steroids prior to arrival: antibiotic prophylaxis given: post hemorrhage risk score: medium risk for hemorrhage delivery date infant a: delivery time a: birthweight (gm) infant a: weight (lb) a: weight (oz) a: gender infant a: femaleapgar 1 minute a: 5 minutes a: 10 minutes a: cord ph obtained infant a: vacuum time a: vacuum # pulls a: vacuum # popoffs infant a: qbl at delivery: __ provider comments on imported nursing data: [] pre-deliverynewborn evaluation at delivery: nrp certified personneladmission ega: weeks: 40 days: 0ega at delivery (wks/days): 40 weeksadmission indication:labor blood loss/detailsblood loss at delivery: <1k: no sx hypovol=no hem, no more than expectedebl at delivery (ml's): 200 baby a informationbaby a information delivery date: 11/17/21 delivery time: 1152 status: live born wt of baby: not yet available gender: female 1 minute: 8 5 minutes: 9 presentation: vertex anomalies:noneabg details baby a cord blood gases: not collectednuchal cord baby a nuchal cord: no anomalies:noneadditional comments:patient present i latent phase oflabor 0315 on 11/16/21 did not get transferred [facility] until 2200 hours on 10/16/21. poor mechanism. pitocin begun after iupc placement. ptogreesived to conplete/0. push x 1 hour and delivered viable female in op position over second degree laceration. nose/mouth suctioned. had good cry, hr, rr, tone and color. infant placedon maternal adomen and delayed clamping x 30 seconds. cordthen cut by lisbeth. cord blood colected. placenta delivered spontaneously and given to md ubtler for stem cell collection. cervix, sidewall intact. uterus firmed with massage iv pitocin. laceration repaired in standard fashion with 2-0 vicryl. all lap, needel, instrument counts correct x2. mother/infant tolerated delivery well. electronically signed by jaida castañeda md on 11/17/21 at 1227 rpt #:[id number] of report CLClinical [id number]:18:[id number] for patient [id number]:28:01 [facility] 2021-11-17 05:03:00 [id number] -08-27T05:03:00 [facility] ([facility])ob intrapart prog notereport#:[id number] report status: signeddate:11/17/21 time: 0503 patient: misbah nuñez unit #: [id number]#: [id number] [facility] 20 sex: f attend: jaida castañeda mdadm dt: 11/16/21 author: jaida castañeda md * all edits or amendments must be made on the electronic/computer document * subjective subjectiveadmission ega: weeks: 40 days: 0current ega: current ega(wks): 40 current ega(days): 1 objective generalvs:last documented: result date time b/p mean 76.0 11/17 0352 b/p 103/59 11/17 0352 pulse 95 11/17 0352 temp 97.6 11/17 0004 resp 15 11/17 0004 vital signs date temp pulse resp b/p b/p mean pulse ox fio2 11/16-11/17 97.6-98.5 66-114 15 93-133/50-71 65.0-91.0 patient weight: weight (lb): 168weight (oz): 6.93weight (kg): 76.400temp 99.6 objectivecervical/ exam: dilatation (cm): 6 effacement (%): 90 station: - 1 (12) presentation: cephalic est. wt (grams) 3200.00 est. wt (lbs) 7 est. wt (oz) 2pelvis exam: clinically adequate for this fetus: yesuterine activity: monitor: toco frequency (description): regular frequency (minutes): 4 duration (seconds): 60 intensity: moderate resting tone: relaxedcurrent oxytocin: indication: augmentation infusion rate: 10.00procedures: intrauterine press cath, vaginal exam fhr evaluationbaby a: baby a baseline: 150 bpm baby a variability: moderate 6-25 bpm baby a accelerations: 15 x 15 baby a decelerations: none baby a fhr category: category 1 diagnosis, assessment planproblem list/a p: 1. term free text a p:term latent phase with inadequate mvus - continue pitoin to titrate to mvu 250reassuring statuslow grade maternal temp - fluid bolus and tylenolassessment: normal fhr pattern, latent phase laborplan: anticipate vag delivery, continue current managmntadditional notes:titrate pitocin to mvus of 250plan discussed with: nurse electronically signed by jaida castañeda md on 11/17/21 at 0506 [facility] #:[phone] of report PRProgress [id number]:03:[id number] 49AVAvailable for patient [id number]:06:47 [facility] 2021-11-17 01:11:00 [id number] -08-27T01:11:00 [facility] ([facility])ob intrapart prog notereport#:[id number] report status: signeddate:11/17/21 time: 0111 patient: misbah nuñez unit #: [id number]#: [id number] [facility] age: 20 sex: f [facility]: 11/16/21 author: jaida castañeda md * all edits or amendments must be made on the electronic/computer document * subjective subjectiveadmission ega: weeks: 40 days: 0current ega: current ega(wks): 40 current ega(days): 1comments:comfortable after epidural objective nursing documentation reviewnursing data:the data set between the solid lines has been imported from nursing documentation. any exceptions have been noted below under provider comments. rom date: rom time: __ provider comments on imported nursing data: [] objectivecervical/ exam: dilatation (cm): 3 (3-4) effacement (%): 90 station: - 2 (12) presentation: cephalic est. wt (grams) 3200.00 est. wt (lbs) 7 est. wt (oz) 2pelvis exam: clinically adequate for this fetus: yesuterine activity: monitor: toco frequency (description): regular frequency (minutes): 5 duration (seconds): 60 intensity: moderate resting tone: relaxedprocedures: intrauterine press cath, vaginal exam fhr evaluationbaby a: baby a baseline: 125 bpm baby a variability: moderate 6-25 bpm baby a accelerations: 15 x 15 baby a decelerations: none baby a fhr category: category 1 diagnosis, assessment planproblem list/a p: 1. term free text a p:term latent phase with inadequate mvus - continue pitoin to titrate to mvu 225reassuring statusassessment: normal fhr pattern, latent phase laborplan: anticipate vag delivery, continue current managmntplan discussed with: patient, family, nurse electronically signed by jaida casatñeda md on 11/17/21 at 0114 [facility] #:[phone] of report PRProgress [id number]:11:[id number] 14AVAvailable for patient [id number]:14:26 [facility] 2021-11-16 23:39:00 [id number] -08-26T23:39:00 [facility]ob intrapart prog notereport#:[id number] report status: signeddate:11/16/21 time: 2339 patient: misbah nuñez unit #: [id number]#: [id number] [facility] age: 20 sex: f attend: jaida castañeda mdadm dt: 11/16/21 author: phyllis north md * all edits or amendments must be made on the electronic/computer document * subjective subjectivecomments:rn called stating dr. castañeda request for arom. pt is iup 40 weeks ga in early labor gbs neg 90/-3. pt has epidural and comfortableo: vital signs date temp pulse resp b/p b/p mean pulse ox fio2 11/16 97.8-98.5 68-114 15-19 103-133/55-71 74.0-91.0 fhr 125 bpm + accels no decel moderate variabilitytoco: ctx q 5 min on 2 mu pitocinve: 80/-3 aromed clear fundal pressure applied. head more applied a: iup @ 40 weeks ga in early labor gbs negative avss fhr cat 1plan: pt aromed per dr. castañeda's request continue management per dr. castañeda objective objectivecervical/ exam: dilatation (cm): 3 effacement (%): 90 station: - 2 (12) presentation: cephalic est. wt (grams) 3200.00 est. wt (lbs) 7 est. wt (oz) 2uterine activity: monitor: toco frequency (description): regular frequency (minutes): 3 duration (seconds): 60 intensity: moderate resting tone: relaxedprocedures: vaginal exam fhr evaluationbaby a: baby a baseline: 125 bpm baby a variability: moderate 6-25 bpm baby a accelerations: 15 x 15 baby a decelerations: none baby a fhr category: category 1 electronically signed by phyllis onrth md on 11/16/21 at 2342 rpt #:[id number] of report PRProgress [id number]:39:[id number] 55AVAvailable for patient [id number]:43:02 [facility] 2021-11-16 15:33:00 [id number] -08-26T15:33:00 [facility] ([facility])ob intrapart prog notereport#:[id number] report status: signeddate:11/16/21 time: 1533 patient: misbah nuñez unit #: [id number]#: [id number] [address] age: 20 sex: f attend: jaida castañeda mdadm dt: 11/16/21 author: jaida castañeda md * all edits or amendments must be made on the electronic/computer document * subjective subjectiveadmission ega: weeks: 40 days: 0current ega: current ega(wks): 40comments:laboring on herown in radha objective nursing documentation reviewnursing data:the data set between the solid lines has been imported from nursing documentation. any exceptions have been noted below under provider comments. rom date: rom time: __ provider comments on imported nursing data: [] generalvs:last documented: result date time b/p mean 75.0 11/16 0405 b/p 105/62 11/16 0405 temp 97.9 11/16 0405 pulse 87 11/16 0405 resp 19 11/16 0405 vital signs date temp pulse resp b/p b/p mean pulse ox fio2 11/16 97.8-97.9 87-98 19 103-105/57-62 75.0 patient weight: weight (lb): 168weight (oz): 6.93weight (kg): 76.400 objectivecervical/ exam: effacement (%): 90 station: - 2 (12) presentation: cephalic est. wt (grams) 3200.00 est. wt (lbs) 7 est. wt (oz) 2uterine activity: monitor: toco frequency (description): regular frequency (minutes): 3 duration (seconds): 60 intensity: moderate resting tone: relaxedprocedures: vaginal exam fhr evaluationbaby a: baby a baseline: 125 bpm baby a variability: moderate 6-25 bpm baby a accelerations: 15 x 15 baby a decelerations: none baby a fhr category: category 1 diagnosis, assessment planproblem list/a p: 1. term free text a p:term latent phaselaboring in radha and progressig. awaiting bed in l dassessment: normal fhr pattern, latent phase laborplan: anticipate vag delivery, awaiting bed in l d. pitocin augmentation/arom when in l d.consultation(s): consultation performed: anesthesia reason for consultation:epiduralplan discussed with: patient, spouse/partner, nurse electronically signed by jaida castañeda md on 11/16/21 at 1536 [facility] #:[phone] of report PRProgress [id number]:33:[id number] 97AVAvailable for patient [id number]:37:08 [facility] 2021-11-16 08:43:00 [id number] -11-16T08:43:00 [facility]ob admission / h preport#:[id number] report status: signeddate:11/16/21 time: 0843 patient: misbah nuñez unit #: [id number]#: [id number] room[facility]bed: [facility]adob: 00 age: 20 sex: f attend: jaida castañeda dt: 11/16/21 author: jaida castañeda md * all edits or amendments must be made on the electronic/computer document * ob historychief complaint: uterine contractionshpi:20 yo bf 40 weeks with regular contractins to radha. initial exam 1cm now 203/70/v/-3. denies srom or bleeding. gbs negative. transferred to [facility] @ 27 weeks from [facility].current : admission ega (weeks) 40 admission ega (days) 0labs: blood type: b rh: positive rubella: immune hepatitis b: negative hiv: negative std: negative syphilis: currently negative gbs: negativeprocedures: nonegenetic testing: cystic fibrosis, sickle cell disease, thalassemia past historyadditional medical history:asthmaadditional surgical history:noneadditional family historynoncontributoryalcohol use denies etoh usedrug use denies recreational drugssmoking status: smoking status for patients 13 years old or older: never smokermedications:home medications:pnv with fe fumarate/fa () 1 tab po daily ferrous sulfate (feosol) 325 mg po daily [inhaler] (unknown dose) allergies:coded allergies:no known allergies (11/16/21) review of systemsall systems rev neg: except as marked objective generalvs:last documented: result date time b/p mean 75.0 11/16 0405 b/p 105/62 11/16 0405 temp 97.9 11/16 0405 pulse 87 11/16 0405 resp 19 11/16 0405 vital signs date temp pulse resp b/p b/p mean pulse ox fio2 11/16 97.8-97.9 87-98 19 103-105/57-62 75.0 patient weight: weight (lb): 168weight (oz): 6.93weight (kg): 76.400 physical examheent: normocephalic w/o injurycardiac: regular rate and rhythmlungs: clear to auscultationneuro: exam: alert, oriented i3adqkzcq: gravid, softmusculoskeletal: painless range of motionuterine activity: monitor: toco frequency (description): regular frequency (minutes): 3 duration (seconds): 60 intensity: moderate resting tone: relaxedpelvic exam: pelvis clinically adequate: yes vulvar lesions: none vagina: normal exam: approp size for gest agecervical/ exam: dilatation (cm): 3 effacement (%): 70 est wt (gms): 3200 suspected macrosomia: no suspected > 5000 grams: no station: - 3 presentation: cephalicmembranes: membranes: intactlower extremities: edema: none calf tenderness: negativebaby b: baby b baseline: 125 bpm baby b variability: moderate 6-25 bpm baby b accelerations: 15 x 15 baby b decelerations: none baby b fhr category: category 1 resultsfindings/data:laboratory tests: 11/16 0715 hematology wbc (6.5 - 12.3 k/mm3) 8.0 rbc (3.51 - 4.69 m/mm3) 4.31 hgb (10.1 - 13.8 g/dl) 12.8 hct (32.5 - 41.8 %) 38.1 mcv (84.6 - 96.6 fl) 88.4 mch (27.3 - 33.9 pg) 29.7 mchc (32.0 - 34.2 gm/dl) 33.6 rdw (12.2 - 16.3 %) 14.9 plt count (134 - 363 k/mm3) 233 mpv (9.2 - 12.7 fl) 9.8 neut % (auto) (57.9 - 77.3 %) 70.6 lymph % (auto) (14.5 - 29.7 %) 18.3 mono % (auto) (3.6 - 10.2 %) 7.0 eos % (auto) (0.0 - 3.0 %) 3.1 h baso % (auto) (0.1 - 0.9 %) 0.5 neut # (auto) (k/mm3) 5.7 lymph # (auto) (k/mm3) 1.5 mono # (auto) (k/mm3) 0.6 eos # (auto) (k/mm3) 0.25 baso # (auto) (k/mm3) 0.0 serology sars-cov-2 ag (rapid) (negative) negative results: labs reviewed diagnosis, assessment plan diagnosis, assessment planproblem list/a p: 1. term free text a p:40 weekslatent phasaereassuring statusassessment/impression: spont.active labor>39 wks, latent labor phase, reassuringfetal statusplan: admit to inpatient, augmentation of laborconsultation(s): consultation performed: anesthesia reason for consultation:epiduralplan discussed with: patient, family electronically signed by jaida castañeda md on 11/16/21 at 0850 rpt #:[id number] of report HPHistory and physical [id number]:43:00F.[id number] for patient [id number]:51:03 [facility]
[2023-07-22] MEDS ORDERED: TETRACAINE HCL 0.5% 4ML OPTH ONE (20:56)
[2023-07-22] MEDS ORDERED: FLUORESCEIN SODIUM 1 MG/WRAP ONE (20:56)
--- NOTE | 2023-07-22 21:32 | EDPHYS ---
Physician Documentation [facility] Name: Deb Hobbs Age: 22 yrs Sex: Female : 2000 Arrival Date: 07/22/2023 Time: 19:25 Bed 11 Private MD: ED Physician Henrik Aggarwal HPI: 07/21 19:45 This 22 yrs old Black Female presents to ER via Ambulatory with complaints of Eye cp Swelling, Redness of Eye. 19:45 The patient is experiencing redness, clear drainage, swelling, itching, both eyes with cp right eye worse. Onset: The symptoms/episode began/occurred this morning. Duration: the symptoms are continuous. Associated signs and symptoms: Pertinent positives: congestion, sneezing, Pertinent negatives: ear ache, fever. Patient wears glasses. Patient reports concern eye redness and swelling due to allergies but reports has been using allergy eye drops . 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 - Infectious Disease History:: Denies. - Social history:: Smoking status: Patient denies any tobacco usage or history of. ROS: 19:50 Constitutional: Negative for body aches, chills, fever, poor PO intake, cp 19:50 Eyes: Positive for itching, redness, swelling, clear drainage, cp 19:50 ENT: Negative for drainage from ear(s), ear pain, sore throat, difficulty swallowing, difficulty handling secretions, 19:50 Respiratory: Negative for cough, shortness of breath, wheezing, 19:50 Skin: Negative for rash, 19:50 Neuro: Negative for dizziness, headache, weakness, 19:50 All other systems are negative, Exam: 19:55 Constitutional: The patient appears in no acute distress, alert, awake, non-toxic, well cp developed, well nourished, 19:55 Head/Face: Normocephalic, atraumatic. cp 19:55 Eyes: Periorbital structures: appear normal, Pupils: equal, round, and reactive to light and accomodation, Extraocular movements: intact throughout, Conjunctiva: injected, in the right eye, Corneas: abrasion, is not appreciated, foreign body, is not appreciated, a fluorescein strip employed to appreciate the findings, Lids and lashes: mild swelling of right eye upper and lower lids. left eye appears with very mild conjunctival erythema and no swelling. 19:55 ENT: External ear(s): are unremarkable, Nose: is normal, Mouth: Lips: moist, Oral mucosa: pink and intact, moist, Posterior pharynx: Airway: no evidence of obstruction, patent, erythema, is not appreciated, exudate, is not appreciated, 19:55 Neck: ROM/movement: is normal, is supple, no meningismus, no nuchal rigidity, 19:55 Chest/axilla: Inspection: normal, 19:55 Cardiovascular: Rate: normal, Rhythm: regular, 19:55 Respiratory: the patient does not display signs of respiratory distress, Respirations: normal, no use of accessory muscles, no retractions, labored breathing, is not present, Breath sounds: are clear throughout, no decreased breath sounds, no stridor, no wheezing, 19:55 Skin: no rash present. Vital Signs: 19:30 BP 130 / 79; Pulse 79; Resp 18 S; Temp 97.4(TE); Pulse Ox 100% on R/A; Weight 66.22 kg as6 (R); Height 5 ft. 3 in. (R); Pain 0/10; 19:30 Body Mass Index 25.86 (66.22 kg, 160.02 cm) as6 19:30 Pain Scale: Adult as6 Visual Acuity: 21:21 Left Eye Visual acuity 20/25, ; Right Eye Visual acuity 20/30, ; Both Eyes Visual cp4 acuity 20/25; With Lenses; MDM: 19:39 Patient medically screened. cp 21:30 Data reviewed: vital signs, nurses notes, and as a result, I will discharge patient. cp 21:30 Differential diagnosis: Corneal abrasion of Corneal ulcer of Foreign body in Acute cp iritis of I considered the following discharge prescriptions or medication management in the emergency department Medications were administered in the Emergency Department. See MAR. Counseling: I had a detailed discussion with the patient and/or guardian regarding the historical points, exam findings, and any diagnostic results supporting the discharge/admit diagnosis, the need for outpatient follow up, an opthalmologist, to return to the emergency department if symptoms worsen or persist or if there are any questions or concerns that arise at home. Response to treatment: the patient's symptoms have mildly improved after treatment, and as a result, I will discharge patient. 07/21 19:53 Order name: Eye Tray; Complete Time: 21:17 cp 07/21 19:53 Order name: Fluoresene Opth strip; Complete Time: 20:57 cp 07/21 19:53 Order name: Visual Acuity; Complete Time: 21:24 cp Administered Medications: 21:24 Drug: Tetracaine Ophthalmic Drops 0.5 % 1 drops Ophthalmic once Route: Ophthalmic; cp4 Site: both eyes; 21:37 Drug: MethylPREDNISolone Sodium Succinate IM 60 mg IM once Route: IM; Site: right cp4 deltoid; 21:57 Follow up: Response: No adverse reaction cp4 21:37 Drug: Gentamicin Ophthalmic Drops 0.3 % 1 drops Ophthalmic once Route: Ophthalmic; cp4 Site: both eyes; 21:56 Follow up: Response: No adverse reaction cp4 Disposition Summary: 07/22/23 21:31 Discharge Ordered Notes: Location: Home cp Problem: new cp Symptoms: have improved cp Condition: Stable cp Diagnosis - Unspecified acute conjunctivitis, bilateral cp Followup: cp - With: Private Physician - When: 2 - 3 days - Reason: Worsening of condition Discharge Instructions: - Discharge Summary Sheet cp - Bacterial Conjunctivitis, Adult cp Forms: - Medication Reconciliation Form cp - Antibiotic Education cp - Prescription Opioid Use cp - Patient Portal Instructions cp - Leadership Thank You Letter cp - Work release form cp4 Prescriptions: - Claritin-D 12 Hour 5-120 mg Oral Tablet Sustained Release 12 hr - take 1 tablet ORAL route every 12 hours As needed; 30 tablet; Refills: 0, cp Product Selection Permitted - Gentamicin 0.3 % Ophthalmic drops - instill 1 drop OPHTHALMIC route every 4 hours for 7 days; 1 unit; Refills: 0, cp Product Selection Permitted Signatures: Henrik Montero PA PA cp Slawson, Ashby, RN RN as6 Mi Ferrari cp4
--- NOTE | 2023-07-22 21:32 | ER ---
Nurse's Notes [facility] Name: Deb Hobbs Age: 22 yrs Sex: Female : 2000 Arrival Date: 07/22/2023 Time: 19:25 Bed 11 Private MD: Diagnosis: Unspecified acute conjunctivitis, bilateral Presentation: 07/21 19:31 Chief complaint: Patient states: pt has bad allergies and woke up this morning with eye as6 redness, swelling, and drainage. Coronavirus screen: At this time, the client does not indicate any symptoms associated with coronavirus-19. Ebola Screen: No symptoms or risks identified at this time. Initial Sepsis Screen: Does the patient meet any 2 criteria? No. Patient's initial sepsis screen is negative. Does the patient have a suspected source of infection? No. Patient's initial sepsis screen is negative. Risk Assessment: Do you want to hurt yourself or someone else? Patient reports no desire to harm self or others. Onset of symptoms was July 22, 2023. 19:31 Acuity: DANIELA 4 as6 19:31 Method Of Arrival: Ambulatory as6 Triage Assessment: 19:32 General: Appears in no apparent distress. Behavior is calm, cooperative. Pain: Denies as6 pain. EENT: Sclera/Cornea. 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 - Infectious Disease History:: Denies. - Social history:: Smoking status: Patient denies any tobacco usage or history of. Screenin:17 [facility] ED Fall Risk Assessment (Adult) History of falling in the last 3 months, cp4 including since admission No falls in past 3 months (0 pts) Confusion or Disorientation No (0 pts) Intoxicated or Sedated No (0 pts) Impaired Gait No (0 pts) Mobility Assist Device Used No (0 pt) Altered Elimination No (0 pt) Score/Fall Risk Level 0 - 2 = Low Risk Oriented to surroundings, Maintained a safe environment, Assessed \T\ reinforced patient's understanding of fall precautions, Hourly rounding (assess needs \T\ fall precautionary measures) done. Abuse screen: Denies threats or abuse. Nutritional screening: No deficits noted. Tuberculosis screening: No symptoms or risk factors identified. Assessment: 21:17 General: Appears uncomfortable, Behavior is calm, cooperative, appropriate for age. cp4 EENT: Reports bilateral eye swelling and drainage.. 21:38 Reassessment: Pending discharge. Patient on shot time. cp4 Vital Signs: 19:30 BP 130 / 79; Pulse 79; Resp 18 S; Temp 97.4(TE); Pulse Ox 100% on R/A; Weight 66.22 kg as6 (R); Height 5 ft. 3 in. (R); Pain 0/10; 19:30 Body Mass Index 25.86 (66.22 kg, 160.02 cm) as6 19:30 Pain Scale: Adult as6 Visual Acuity: 21:21 Left Eye Visual acuity 20/25, ; Right Eye Visual acuity 20/30, ; Both Eyes Visual cp4 acuity 20/25; With Lenses; ED Course: 19:26 Patient arrived in ED. jj6 19:32 Triage completed. as6 19:32 Arm band placed on. as6 19:39 Henrik Montero PA is PHCP. cp 19:39 Henrik Aggarwal MD is Attending Physician. cp 21:16 Mi Ferrari is Primary Nurse. cp4 21:17 Bed in low position. Call light in reach. Side rails up X 1. cp4 21:17 Assist provider with eye exam of both eyes. using fluorescein stain, Performed by Henrik JUAREZ Patient tolerated well. 21:55 Patient did not have IV access during this emergency room visit. cp4 21:56 Provided Education on: eye infection. cp4 Administered Medications: 21:24 Drug: Tetracaine Ophthalmic Drops 0.5 % 1 drops Ophthalmic once Route: Ophthalmic; cp4 Site: both eyes; 21:37 Drug: MethylPREDNISolone Sodium Succinate IM 60 mg IM once Route: IM; Site: right cp4 deltoid; 21:57 Follow up: Response: No adverse reaction cp4 21:37 Drug: Gentamicin Ophthalmic Drops 0.3 % 1 drops Ophthalmic once Route: Ophthalmic; cp4 Site: both eyes; 21:56 Follow up: Response: No adverse reaction cp4 Medication: 21:17 VIS not applicable for this client. cp4 Outcome: 21:31 Discharge ordered by . cp 21:55 Discharged to home ambulatory, cp4 21:55 Condition: stable 21:55 Discharge instructions given to patient, Instructed on discharge instructions, follow up and referral plans. medication usage, Demonstrated understanding of instructions, follow-up care, medications, Prescriptions given X 2, 21:56 Patient left the ED. cp4 Signatures: Henrik Montero PA PA cp Jeffries, Jennifer jj6 Geo Sanders RN RN as6 Mi Ferrari cp4
[2023-07-22] MEDS ORDERED: METHYLPREDNISOLONE 125 MG INJ ONE (21:33)
[2023-07-22] MEDS ORDERED: GENTAMICIN 0.3% OPTH DROP 5ML ONE (21:33)
[2023-07-22 22:16] VITALS: BP 130/79; TEMP 97.4; O2SAT 100
== END 2023-07-22 21:56 | disposition home or self-care (01) ==
LOC: ER 19:25
DX: H10.33 Unspecified acute conjunctivitis, bilateral (principal)
CPT/HCPCS: 96372; 99284; J2919